=== PATIENT | female | born 1950 | race Caucasian/White ===

== ENCOUNTER → 2017-03-24 | Outpatient (CLI) | payer MEDICARE, BC ==
--- NOTE | 2017-03-24 16:13 | MR ---
EXAMINATION TYPE: MR shoulder LT wo con DATE OF EXAM: 03/24/2017 10:56 AM COMPARISON: Prior left shoulder MRI 07 November 2014, plain film third of February 2017 HISTORY: Left shoulder pain TECHNIQUE: Multiplanar, multisequence imaging of the left shoulder is performed without contrast. FINDINGS: There is some motion on the exam. Rotator Cuff: Similar appearance is noted. Tendinosis present within the subscapularis tendon is some what less pronounced. No through and through or rosa maria rotator cuff tear is evident, there is no retra ction. Some increased signal is noted along the inferior margin of the distal margin of the supraspin atus tendon. Acromioclavicular Joint: Question postop change, distal clavicular resection. Glenohumeral Joint: Similar appearance to prior exam. Labrum: Similar appearance. Biceps Tendon: The long head of biceps is in normal location within bicipital groove. Bone marrow signal: There is been an interval increase in pseudocyst formation, marrow signal change at the level of the undersurface of the rotator cuff tendon. There is a tract in the humeral head lik heaven from prior screw deployment. Other: No additional significant abnormality is appreciated. IMPRESSION: Interval surgery. No rosa maria rotator cuff tear.
== END | disposition home or self-care (01) ==
LOC: RADMRIMAIN 10:11
PROVIDERS: ATTEND Orthopaedic Surgery
DX: M25.512 Pain in left shoulder (principal)

== ENCOUNTER → 2017-04-29 | Outpatient (CLI) | payer MEDICARE, BC ==
--- NOTE | 2017-04-29 16:12 | US ---
EXAMINATION TYPE: US thyroid st tissue head/neck DATE OF EXAM: 04/29/2017 COMPARISON: US thyroid October 28, 2016. CLINICAL HISTORY: E04.1 THYROID NODULE. GLAND SIZE: Right Lobe: 6.4 x 3.3 x 4.4 cm Overall Parenchyma: heterogenous Left Lobe: 4.3 x 1.1 x 1.6 cm Overall Parenchyma: heterogeneous Isthmus Thickness: 0.2 cm NODULES RIGHT: # of nodules measured on right: 2 1. 5.5 X 3.1 x 5.2 cm isoechoic mixed nodule at the mid pole with well-defined margins; . This nod ule is wider than tall and shows intranodular vascularity. Prior size: 5.3 x 3.3 x 2.8 cm 2. 2.4 X 1.1 x 1.7 cm hypoechoic solid nodule at the lower pole with well-defined margins; . This n odule is taller than wide and shows intranodular vascularity. Prior size: 1.5 x 2.5 x 2.0 cm LEFT: # of nodules measured on left: 0 ISTHMUS: # of nodules measured in the isthmus: 0 Bilateral neck scanned, no evidence of lymphadenopathy. nodules as described Heterogeneous enlarged thyroid gland particularly right thyroid lobe with large ill-defined right-geovani ed thyroid nodules redemonstrated. These nodules have been biopsied in the past. No new nodules are e vident. IMPRESSION: Overall stable findings, no new suspicious greater than 1 cm nodule seen.
== END | disposition home or self-care (01) ==
LOC: RADUSWWP 15:29
PROVIDERS: ATTEND Otolaryngology
DX: E04.1 Nontoxic single thyroid nodule (principal)
CPT/HCPCS: 76536

== ENCOUNTER → 2017-04-30 | Outpatient (CLI) | payer MEDICARE, BC ==
--- NOTE | 2017-04-30 12:36 | FL ---
ESOPHOGRAM. HISTORY: Dysphagia Esophagram was performed per the air contrast technique. The patient swallowed barium and effervesce nt crystals without difficulty or delay. Esophageal peristalsis and motility appear to be within normal limits. There is no evidence for filling defect, mass or diverticulum. No hiatal hernia seen. Subsequently single contrast cervical esophagram was performed which fails demonstrate evidence for a spiration penetration or intraluminal mass. Esophageal deviation from right to left compatible with e nlarged right thyroid lobe as seen on recent ultrasound of the thyroid gland and underlying nodule. IMPRESSION: 1. Esophageal deviation from right to left at the level of the thoracic inlet. Otherwise unremarkable study.
== END | disposition home or self-care (01) ==
LOC: RADFLWHC 10:53
PROVIDERS: ATTEND Family Medicine
DX: K22.8 Other specified diseases of esophagus (principal); R07.9 Chest pain, unspecified
CPT/HCPCS: 74220

== ENCOUNTER → 2017-09-08 | Outpatient (CLI) | payer MEDICARE, BC ==
--- NOTE | 2017-09-08 15:46 | MR ---
EXAMINATION TYPE: MR brain wo/w con DATE OF EXAM: 09/08/2017 COMPARISON: NONE HISTORY: Temporal Headache TECHNIQUE: Multiplanar, multisequence images of the brain and brainstem is performed without and with IV contras t, utilizing 7.5 mL intravenous Gadavist . FINDINGS: Diffusion weighted images demonstrate no evidence of a recent infarct or other diffusion ab normality. Wwrk-co-cdmjtyoi generalized degenerative change. Changes of chronic sinusitis noted. Craniocervical junction maintained. There are confluent as well as numerous focal areas of abnormal signal scattered throughout the white matter bilaterally. Findings may be on the basis of remote microvascular ischemia. Other etiologies not entirely excluded. Abnormal signal involving the left thalamus and the basal ganglia bilaterally are nonspecific can be seen with prominent Virchow-Hector spaces or tiny remote lacunar infarcts. Vascular signal voids appear to be patent. Changes of chronic bilateral mastoiditis noted. IMPRESSION: 1. Ufkl-ot-qketetvt degenerative change. 2. Nonspecific white matter changes. Differential diagnosis includes remote microvascular ischemia. C orrelate clinically to exclude other etiologies.
== END ==
LOC: RADMRIMAIN 14:29
PROVIDERS: ATTEND Family Medicine
DX: R90.89 Other abnormal findings on diagnostic imaging of central nervous system (principal)
CPT/HCPCS: 70553; A9581

== ENCOUNTER → 2018-03-31 | Outpatient (CLI) | payer MEDICARE, BC ==
--- NOTE | 2018-03-31 14:44 | US ---
EXAMINATION TYPE: US kidneys/renal and bladder DATE OF EXAM: 03/31/2018 COMPARISON: NONE CLINICAL HISTORY: 67-year-old female R10.9 abdominal pain. TECHNIQUE: Multiple sonographic images of the kidneys and bladder are obtained. FINDINGS: Right Kidney: 11.0 x 3.9 x 4.0 cm Left Kidney: 10.3 x 4.5 x 5.0 cm No hydronephrosis on either side. Bladder appears grossly unremarkable. IMPRESSION: No hydronephrosis.
== END | disposition home or self-care (01) ==
LOC: RADUSWWP 12:18
PROVIDERS: ATTEND Family Medicine
DX: R10.9 Unspecified abdominal pain (principal)
CPT/HCPCS: 76770

== ENCOUNTER → 2018-04-13 | Outpatient (CLI) | payer MEDICARE, BC ==
--- NOTE | 2018-04-13 13:52 | US ---
EXAMINATION TYPE: US thyroid st tissue head/neck DATE OF EXAM: 04/13/2018 COMPARISON: US CLINICAL HISTORY: E04.1 Thyroid Nodule. GLAND SIZE: Right Lobe: 6.8 x 3.3 x 4.4 cm Overall Parenchyma: heterogenous Left Lobe: 3.2 x 1.1 x 1.4 cm Overall Parenchyma: heterogeneous Isthmus Thickness: 0.1 cm NODULES RIGHT: # of nodules measured on right: 2 1. 2.3 X 1.4 x 1.5 cm hypoechoic solid nodule at the lower pole with well-defined margins; . This nodule is taller than wide and shows intranodular vascularity. Prior size: 2.4 x 1.1 x 1.7 cm 2. 5.2 X 2.9 x 4.1 cm isoechoic solid nodule at the mid pole with poorly defined margins; . This no dule is wider than tall and shows intranodular vascularity. Prior size: 5.5 x 3.1 x 5.2 cm LEFT: # of nodules measured on left: 0 ISTHMUS: # of nodules measured in the isthmus: 0 Bilateral neck scanned, no evidence of lymphadenopathy. Nodules as described. IMPRESSION: Findings are similar to prior exam.
== END | disposition home or self-care (01) ==
LOC: RADUSWWP 11:00
PROVIDERS: ATTEND Otolaryngology
DX: E04.1 Nontoxic single thyroid nodule (principal)
CPT/HCPCS: 76536

== ENCOUNTER → 2018-11-25 | Outpatient (CLI) | payer MEDICARE, OTHER ==
--- NOTE | 2018-11-25 11:51 | US ---
EXAMINATION TYPE: US venous doppler duplex LE LT DATE OF EXAM: 11/25/2018 11:07 AM COMPARISON: NONE CLINICAL HISTORY: 68-year-old female with left Leg Pain M79.605. Intermittent left leg pain x 1 to 2 months SIDE PERFORMED: Left TECHNIQUE: The lower extremity deep venous system is examined utilizing real time linear array sonog harry with graded compression, doppler sonography and color-flow sonography. FINDINGS: VESSELS IMAGED: External Iliac Vein (EIV) Common Femoral Vein Deep Femoral Vein Greater Saphenous Vein * Femoral Vein Popliteal Vein Small Saphenous Vein * Proximal Calf Veins (* superficial vessels) Left Leg: Appears negative for DVT IMPRESSION: No evidence for DVT within the left lower extremity imaged from the groin to the upper calf.
== END | disposition home or self-care (01) ==
LOC: RADUSWWP 10:43
PROVIDERS: ATTEND Family Medicine
DX: M79.605 Pain in left leg (principal)

== ENCOUNTER → 2018-12-22 | Outpatient (CLI) | payer MEDICARE, OTHER ==
--- NOTE | 2018-12-22 14:00 | NM ---
EXAMINATION TYPE: NM bone scan whole body DATE OF EXAM: 12/22/2018 COMPARISON: NONE HISTORY: Left leg pain Delayed whole-body scanning was performed following the injection of 24 mCi Tc 99m MDP. Images acqui red 3 hours post injection. FINDINGS: Photopenic defect involving the right knee compatible with previous knee replacement surgery. Abnormal uptake involving the feet bilaterally most typical of post arthritic or degenerative changes . Mild abnormal uptake surrounding the left knee likely post arthritic. Scoliotic curvature the spine with mild intensity uptake throughout the thoracic spine likely degener ative. Faint uptake involving the shoulders likely post arthritic. IMPRESSION: Faint abnormal uptake involving the left knee likely post arthritic. Abnormal uptake involving the fe et likely post arthritic.
== END ==
LOC: RADNMMAIN 09:35
PROVIDERS: ATTEND Family Medicine
DX: M79.605 Pain in left leg (principal)
CPT/HCPCS: 78306; A9503

== ENCOUNTER → 2018-12-30 | Outpatient (CLI) | payer MEDICARE, OTHER ==
--- NOTE | 2018-12-31 00:19 | MR ---
EXAMINATION TYPE: MR knee LT wo con DATE OF EXAM: 12/30/2018 COMPARISON: None HISTORY: Left knee pain TECHNIQUE: Multiplanar, multisequence imaging of the left knee is performed without IV contrast. FINDINGS: There is mild knee joint effusion. There are synovial cysts on the anterior aspect of the anterior ho rn of the lateral meniscus. The anterior and posterior cruciate ligaments are intact. There is horizontal increased signal through the anterior and posterior horns of the medial meniscus. There is extensive increased signal in the anterior horn of the lateral meniscus. Posterior horn lat eral meniscus appears intact. There is no evidence of a fracture. I see no bony destructive process. Collateral ligaments appear intact. The joint spaces are fairly normal. IMPRESSION: Small joint effusion with synovial cysts anterior to the lateral joint space. Complex tear of the anterior horn lateral meniscus. Horizontal tears of the anterior and posterior horns of the medial meniscus.
== END | disposition home or self-care (01) ==
LOC: RADMRIMAIN 21:21
PROVIDERS: ATTEND Orthopaedic Surgery
DX: S83.272A Complex tear of lateral meniscus, current injury, left knee, initial encounter (principal); S83.242A Other tear of medial meniscus, current injury, left knee, initial encounter; M71.38 Other bursal cyst, other site

== ENCOUNTER → 2019-04-12 | Outpatient (CLI) | payer MEDICARE, OTHER ==
--- NOTE | 2019-04-13 07:22 | US ---
EXAMINATION TYPE: US thyroid st tissue head/neck DATE OF EXAM: 04/12/2019 COMPARISON: US 2018 CLINICAL HISTORY: E04.1 Thyroid nodule. Follow up thyroid nodules, history of FNA GLAND SIZE: Right Lobe: 6.9 x 3.8 x 5.9 cm Overall Parenchyma: heterogenous Left Lobe: 4.2 x 1.1 x 1.3 cm Overall Parenchyma: heterogeneous Isthmus Thickness: 0.2 cm NODULES RIGHT: # of nodules measured on right: 1. 6.6 X 3.5 x 5.3 cm isoechoic mixed nodule at the mid pole with poorly defined margins. This nodu le is wider than tall and shows intranodular vascularity. Prior size: 5.2 x 2.9 x 4.1 cm LEFT: # of nodules measured on left: 0 ISTHMUS: # of nodules measured in the isthmus: 0 Bilateral neck scanned, no evidence of lymphadenopathy. IMPRESSION: Continued enlargement of the heterogenous right thyroid nodule measuring up to 6.6 cm it appears that a previously seen hypoechoic adjacent nodule had undergone fine-needle aspiration in 2017. Nuclear m edicine thyroid scan could assess for cold nodule to determine the need for additional biopsy.
== END | disposition home or self-care (01) ==
LOC: RADUSWWP 16:11
PROVIDERS: ATTEND Otolaryngology
DX: E04.1 Nontoxic single thyroid nodule (principal)
CPT/HCPCS: 76536

== ENCOUNTER 2019-05-21 09:09 | Day surgery (SDC) | payer MEDICARE, OTHER ==
[2019-05-21 09:26] VITALS: BP 122/67; PULSE 72; RESP 20; TEMP 97.6
--- NOTE | 2019-05-21 16:22 | US ---
EXAMINATION TYPE: US FNA thyroid first lesion DATE OF EXAM: 05/21/2019 COMPARISON: NONE HISTORY: Thyroid nodule. Maximal barrier technique was utilized. After informed consent, skin overlying the lesion was locali zed with ultrasound and the overlying skin prepped and draped. Ultrasound was utilized using sterile technique. Lidocaine was used for local anesthesia. Five passes with a 25-gauge needle were made int o the right lobe thyroid nodule and aspirated specimen was submitted to cytology. Following the proc edure hemostasis achieved. No immediate complication. The patient discharged in stable condition. IMPRESSION: STATUS POST ULTRASOUND GUIDED FINE NEEDLE ASPIRATION OF THYROID NODULE, PATHOLOGY IS PEND ING. THIS PROCEDURE WAS PERFORMED BY THE UNDERSIGNED.
== END 2019-05-21 11:05 | disposition home or self-care (01) ==
LOC: RADPROMAIN 09:09
PROVIDERS: ATTEND Otolaryngology
DX: E04.1 Nontoxic single thyroid nodule (principal)
CPT/HCPCS: 10005; 88173; 88305

== ENCOUNTER 2019-06-10 10:10 | Day surgery (SDC) | payer MEDICARE, OTHER ==
[2019-06-08 14:18] VITALS: BMI 30.7
--- NOTE | 2019-06-09 14:01 | HP ---
HISTORY AND PHYSICAL Surgery is 06/10/2019. Annelise Tai is a 68-year-old patient seen with progressive left knee pain. Treatment options were discussed with her. She elected to proceed with left knee arthroscopy. Consent was obtained. Her medical clearance was provided by . PAST MEDICAL HISTORY: Cardiovascular disease, hypertension, hyperlipidemia. PAST SURGICAL HISTORY: Noncontributory. DAILY MEDICATIONS: 1. Aspirin. 2. Crestor. 3. Naprosyn. ALLERGIES: None. SOCIAL HISTORY: She denies current tobacco use. PHYSICAL EXAMINATION: Physical evaluation of the left knee: Range of motion 0 to 130 degrees. There is a mild effusion present. Tenderness along the lateral joint line. Positive lateral Lam's. Ligaments stable. Hip rotation without pain. Distal neurovascular exam is intact. Left knee radiographs revealed mild to moderate osteoarthritic changes. A left knee MRI revealed medial and lateral meniscal tears. IMPRESSION: Internal derangement, left knee with medial and lateral meniscal tears. PLAN: Left knee arthroscopy with partial meniscectomy and debridement. MMODL / IJN: [id number] /
[~2019-06-10 10:10] MED LIST: DEXAMETHASONE SOD PHOSPHATE 10 MG/ML 1 ML VIAL IV ONE; LACTATED RINGERS 1,000 ML IV SCH; LIDOCAINE 1% 20 ML VIAL (10MG/ML) FOR IV START INTRADERMA PRN; ONDANSETRON 4 MG/2 ML VIAL IVP ONE
[2019-06-10] MEDS ORDERED: PROPOFOL 10 MG/ML 20 ML VIAL IV ONE (11:45)
[2019-06-10] MEDS ORDERED: fentaNYL (PF) 50 MCG/ML 2 ML AMP ONE (11:45)
[2019-06-10] MEDS ORDERED: LIDOCAINE 1% INJ 10MG/ML (20 ML MDV) ONE (11:45)
[2019-06-10] MEDS ORDERED: BUPIVACAINE (PF) 0.25% 30 ML VIAL SQ ONE (12:05)
--- NOTE | 2019-06-10 12:34 | P.OP ---
Date of Procedure: 06/10/19 Preoperative Diagnosis: Internal derangement left knee Postoperative Diagnosis: 1. Tear medial meniscus left knee 2. Grade 2 chondromalacia medial femoral condyle left knee 3. Grade 2 chondromalacia patella left knee 4. Reactive synovitis medial, lateral and suprapatellar compartments left knee Procedure(s) Performed: 1. Arthroscopic partial medial meniscectomy left knee 2. Arthroscopic chondroplasty medial femoral condyle left knee 3. Arthroscopic chondroplasty patella left knee 4. Arthroscopic partial synovectomy medial, lateral and suprapatellar compartments left knee Anesthesia: SABRINAA, local Surgeon: Bakari Escamilla Estimated Blood Loss (ml): 7 Pathology: none sent Condition: stable Disposition: PACU Indications for Procedure: 68-year-old patient seen with progressive left knee pain. After having treatment options discussed, she elected to proceed with arthroscopy. Operative Findings: See description of procedure Description of Procedure: Patient was taken to the operative suite. Patient underwent a general anesthetic by the department of anesthesia. Patient was given preoperative antibiotics. The left lower extremity was placed in a well-padded arthroscopic leg carballo. The left leg was prepped and draped in the normal sterile orthopedic fashion. A lateral parapatellar and suprapatellar incision was made. Trochars were inserted. Arthroscopy was initiated. Suprapatellar pouch reveal ed diffuse thick reactive synovitis. The patellofemoral joint appeared to articulate congruently. There was grade 2 chondromalacia with diffuse osteochondral tears present. The scope was guided into the medial gutter. No loose bodies or plica were identified. The scope was then guided into the medial compartment. A medial parapatellar incision was made. Trocar inserted followed by probe. There was a radial tear involving the posterior horn medial meniscus. There were grade 2 chondromalacia changes of the medial femoral condyle with some osteochondral flap tears present. There was thick reactive synovitis anteriorly. I performed a partial medial meniscectomy down to stable tissue. I performed a chondroplasty of the medial femoral condyle down to stable tissue. I performed a partial synovectomy decompressing reactive synovitis. The residual meniscus was stable. The residual osteochondral surface was stable. There was good decompression of the synovitis. Scope and probe were then guided into the intercondylar notch. Cruciates were identified, probed and found to be stable. The scope and probe were then guided into lateral compartment. Lateral meniscus was probed and found to be stable. There was no significant chondromalacia present into lateral compartment. There was some reactive synovitis anteriorly. I performed a partial synovectomy decompressing the reactive synovitis. The scope was in guided back into the suprapatellar compartment. I introduced a motorized shaver into the suprapatellar compartment. I debrided some piecemeal fragments of meniscus I encountered. I performed a chondroplasty of the patella down to stable tissue. I performed a partial synovectomy decompressing reactive synovitis. The shaver was removed. I took one more look around the entire knee, no residual debris. Instruments were now removed from the joint. The joint was infiltrated with .25% Marcaine. Steri-Strips were applied to the portal sites. Sterile dressin gs were applied. The patient was placed into a TITO hose. No tourniquet was utilized. The patient was awakened, transferred to a bed and taken to recovery stable satisfactory condition.
[2019-06-10 12:38] VITALS: RESP 16; TEMP 97.6
[2019-06-10] MEDS: HYDROmorphone 0.5 MG/0.5 ML SYRINGE IVP PRN ×2 (12:45→12:59)
[2019-06-10 13:39] VITALS: BP 117/69
[2019-06-10 13:56] VITALS: PULSE 57
== END 2019-06-10 14:16 | disposition home or self-care (01) ==
LOC: OR 10:10
PROVIDERS: ATTEND Orthopaedic Surgery
DX: M23.322 Other meniscus derangements, posterior horn of medial meniscus, left knee (principal); M22.42 Chondromalacia patellae, left knee; M65.862 Other synovitis and tenosynovitis, left lower leg; M19.90 Unspecified osteoarthritis, unspecified site; I10 Essential (primary) hypertension; E78.5 Hyperlipidemia, unspecified; Z79.82 Long term (current) use of aspirin; Z79.899 Other long term (current) drug therapy; Z79.1 Long term (current) use of non-steroidal anti-inflammatories (NSAID)
CPT/HCPCS: 29881; J1100; J0690; J2405; J2001; J3010; J2704; J1170

== ENCOUNTER → 2019-06-30 | Outpatient (CLI) | payer MEDICARE, OTHER ==
--- NOTE | 2019-06-30 13:58 | XR ---
Right hip HISTORY: Right hip pain 2 views of the right hip Bone mineralization, joint spaces and alignment are maintained, possible bone island in the acetabula r roof. IMPRESSION: Normal right hip, hip MRI may be of benefit.
== END | disposition home or self-care (01) ==
LOC: RADXRMAIN 13:43
PROVIDERS: ATTEND Orthopaedic Surgery
DX: M25.551 Pain in right hip (principal)
CPT/HCPCS: 73502

== ENCOUNTER → 2020-04-19 | Outpatient (CLI) | payer MEDICARE ==
[2020-04-19 15:48] LABS: % Iron Saturation 23.97 (12.00-45.00)
[2020-04-19 15:49] LABS: Protein, Total 6.4 g/dL (6.2-8.2)
[2020-04-19 15:57] LABS: Ferritin 95.7 ng/mL (10.0-291.0)
[2020-04-19 18:16] LABS: Hepatitis B Surface Antigen Non-Reactive (Non-Reactive); Hepatitis C IgG Antibody Non-Reactive (Non-Reactive)
[2020-04-20 13:15] LABS: Ceruloplasmin 24.2 mg/dL (20.0-60.0)
== END | disposition home or self-care (01) ==
LOC: LABWHC1 10:27
PROVIDERS: ATTEND Internal Medicine Gastroenterology
DX: R94.5 Abnormal results of liver function studies (principal)
CPT/HCPCS: 36415; 82103; 82390; 82728; 83516; 83540; 83550; 84165; 86038; 86803; 87340

== ENCOUNTER → 2020-04-28 | Outpatient (CLI) | payer MEDICARE, OTHER ==
--- NOTE | 2020-04-28 07:49 | US ---
EXAMINATION TYPE: US thyroid st tissue head/neck DATE OF EXAM: 04/28/2020 COMPARISON: US 2019 CLINICAL HISTORY: E04.1 thyroid nodule. Enlarged right thyroid lobe, history of FNA. GLAND SIZE: Right Lobe: 7.1 x 3.5 x 6.0 cm Overall Parenchyma: heterogenous Left Lobe: 3.7 x 1.3 x 1.2 cm Overall Parenchyma: heterogeneous Isthmus Thickness: 0.2 cm NODULES RIGHT: # of nodules measured on right: 1 1. 6.0 X 3.2 x 5.0 cm isoechoic mixed nodule at the mid pole with poorly defined margins. This nodu le is wider than tall and shows intranodular vascularity. Prior size: 6.6 x 3.5 x 5.3 cm LEFT: # of nodules measured on left: 0 ISTHMUS: # of nodules measured in the isthmus: 0 Bilateral neck scanned, no evidence of lymphadenopathy. Persistent heterogeneous markedly enlarged thyroid with dominant nodule that has been sampled April. Correlate clinically with pathology results. IMPRESSION: As above. No new nodules are evident.
== END | disposition home or self-care (01) ==
LOC: RADUSWWP 07:12
PROVIDERS: ATTEND Otolaryngology
DX: E04.1 Nontoxic single thyroid nodule (principal)
CPT/HCPCS: 76536

== ENCOUNTER → 2020-05-19 | Outpatient (CLI) | payer MEDICARE ==
--- NOTE | 2020-05-19 10:37 | US ---
EXAMINATION TYPE: US liver DATE OF EXAM: 05/19/2020 COMPARISON: US 2016 CLINICAL HISTORY: R94.5 Abnormal liver functions. Elevated liver enzymes EXAM MEASUREMENTS: Liver Length: 15.4 cm Gallbladder Wall: 0.2 cm CBD: 0.4 cm Right Kidney: 10.2 x 4.5 x 4.5 cm Pancreas: visualized portions wnl, limited by overlying midline bowel gas Liver: wnl Gallbladder: wnl Evidence for sonographic Ortega's sign: no CBD: visualized portions wnl, limited by overlying bowel gas Right Kidney: wnl IMPRESSION: 1. No suspicious acute ultrasound abnormality within the visualized right upper quadrant.
== END | disposition home or self-care (01) ==
LOC: RADUSWWP 09:33
PROVIDERS: ATTEND Internal Medicine Gastroenterology
DX: R94.5 Abnormal results of liver function studies (principal)
CPT/HCPCS: 76705

== ENCOUNTER 2020-05-24 09:10 | Day surgery (SDC) | payer MEDICARE, OTHER ==
[2020-05-22 16:06] VITALS: BMI 30.9
[~2020-05-24 09:10] MED LIST changes: -DEXAMETHASONE SOD PHOSPHATE 10 MG/ML 1 ML VIAL IV ONE; -LIDOCAINE 1% 20 ML VIAL (10MG/ML) FOR IV START INTRADERMA PRN; -ONDANSETRON 4 MG/2 ML VIAL IVP ONE
[2020-05-24 09:37] VITALS: TEMP 97.8
[2020-05-24] MEDS ORDERED: LACTATED RINGERS 1,000 ML IV ONE (09:37)
[2020-05-24] MEDS ORDERED: LIDOCAINE 1% (10MG/ML) FOR IV START INTRADERMA ONE (09:37)
[2020-05-24] MEDS ORDERED: PROPOFOL 10 MG/ML 20 ML VIAL IV ONE (10:58)
[2020-05-24] MEDS ORDERED: LIDOCAINE 1% INJ 10MG/ML (20 ML MDV) ONE (10:58)
--- NOTE | 2020-05-24 11:18 | P.PCN ---
Date of Procedure: 05/24/20 Procedure(s) Performed: Brief history: Patient is a pleasant 69-year-old white female scheduled for an elective upper endoscopy as well as colonoscopy as a part of evaluation of GERD/positive bowel movements with lower abdominal pain for the last few months duration. Procedure performed: Esophagogastroduodenoscopy with biopsy Colonoscopy Preoperative diagnosis: GERD Lower abdominal pain and altered bowel movements Anesthesia: MAC Procedure: After informed consent was obtained from the patient was brought into the endoscopy unit and IV sedation was administered by anesthesia under continuous monitoring. Initially upper endoscopy was done. The Olympus GF 160 video endoscope was inserted inserted into the mouth and esophagus intubated without any difficulty and was gradually advanced into the stomach and duodenum and carefully examined. The bulb and second part of the duodenum appeared normal. Biopsies were done from the duodenum to rule out celiac disease. The scope was then withdrawn into the stomach adequately insufflated with air and upon careful examination the antrum and body, cardia and fundus appeared normal. The scope was then withdrawn into the esophagus. The GE junction was located at 40 cm to the incisors. It appeared regular with no erythema erosions or ulcerations. Rest of the esophagus appeared normal. Biopsies were done from the esophagus. Patient tolerated the procedure well. At this time the patient continued to remain sedation. Initial digital rectal examination was normal. Olympus CF 160 video colonoscope was then inserted into the rectum and gradually advanced to the cecum without any difficulty. Careful examination was performed as the scope was gradually being withdrawn. The prep was good.. The cecum, ascending colon, transverse colon, descending colon, sigmoid colon and rectum appeared normal. Retroflexion was performed in the rectum and no lesions were noted. Patient tolerated the procedure well. Impression: 1. Upper endoscopy was essentially within normal limits with no lesions of esophagitis or peptic ulcer 2. Colonoscopy was normal with no evidence of colitis or colorectal neoplasia Recommendations: Findings of this examination were discussed with the patient as well as[ a family. She was advised to follow with the biopsy results she'll continue with her current medications. She can have a repeat colonoscopy in 10 years.
[2020-05-24 11:21] VITALS: RESP 16
[2020-05-24 11:38] VITALS: BP 132/78; PULSE 67
== END 2020-05-24 11:52 | disposition home or self-care (01) ==
LOC: ORWHC2ENDO 09:10
PROVIDERS: ATTEND Internal Medicine Gastroenterology
DX: K21.0 Gastro-esophageal reflux disease with esophagitis (principal); R10.30 Lower abdominal pain, unspecified; R19.4 Change in bowel habit; E78.5 Hyperlipidemia, unspecified; Z79.899 Other long term (current) drug therapy; Z79.82 Long term (current) use of aspirin; Z87.39 Personal history of other diseases of the musculoskeletal system and connective tissue; Z98.890 Other specified postprocedural states; Z90.89 Acquired absence of other organs
CPT/HCPCS: 45378; 43239; J2001; J2704; 88305

== ENCOUNTER → 2020-06-14 | Outpatient (CLI) | payer MEDICARE ==
--- NOTE | 2020-06-14 22:30 | MR ---
EXAMINATION TYPE: MR shoulder RT wo con DATE OF EXAM: 06/14/2020 COMPARISON: MRI right shoulder April 06, 2016. Right shoulder x-ray May 23, 2020 HISTORY: Right shoulder pain with difficulty raising overhead for 5 to 6 months per patient. TECHNIQUE: Multiplanar, multisequence imaging of the right shoulder is performed without contrast. FINDINGS: Rotator Cuff: Persistent increased signal distal supraspinatus and infraspinatus tendons with worseni ng tearing articular surface involving supraspinatus tendon measuring 7 mm transversely coronal image 14 and 11 mm AP diameter sagittal image 21. Subscapularis tendon intact. Rotator cuff muscle bulk pr eserved. Acromioclavicular Joint: Mild to moderate narrowing and capsular hypertrophy. Mild spurring. Distal a cromion morphology unremarkable. Glenohumeral Joint: Moderate glenohumeral joint effusion larger from prior. No significant spurring. Labrum: Degenerative irregularities involving superior labrum coronal image 15. Biceps Tendon: Some increased signal intracapsular portion near biceps anchor are present sagittal im age 13 for reference. Bone marrow signal: Subchondral cystic changes superolateral humeral head. Other: No additional significant abnormality is appreciated. IMPRESSION: 1. Progression of tendinosis and partial tearing of the distal supraspinatus tendon. 2. Gccv-gu-lrhlyhgj degenerative changes in shoulder with some interval progression noted as detailed above. 3. Progression of tendinosis/partial tearing of the intracapsular portion long head of biceps tendon.
== END | disposition home or self-care (01) ==
LOC: RADMRIMAIN 19:06
PROVIDERS: ATTEND Orthopaedic Surgery
DX: S46.011A Strain of muscle(s) and tendon(s) of the rotator cuff of right shoulder, initial encounter (principal); M19.011 Primary osteoarthritis, right shoulder

== ENCOUNTER → 2020-07-05 | Outpatient (CLI) | payer MEDICARE ==
[2020-07-05 12:40] LABS: Basophils % (A) 1 %; Eosinophils # (A) 0.1 k/uL (0-0.7); Eosinophils % (A) 2 %; HCT 45.2 % (34.0-46.0); HGB 14.8 gm/dL (11.4-16.0); Lymphocytes # (A) 1.4 k/uL (1.0-4.8); Lymphocytes % (A) 28 %; MCH 29.8 pg (25.0-35.0); MCHC 32.7 g/dL (31.0-37.0); MCV 91.1 fL (80.0-100.0); Mean Platelet Volume 7.7; Monocytes # (A) 0.3 k/uL (0-1.0); Monocytes % (A) 6 %; Neutrophils % (A) 62 %; Platelet Count 197 k/uL (150-450); RBC 4.96 m/uL (3.80-5.40); RDW 11.9 % (11.5-15.5); WBC 4.8 k/uL (3.8-10.6)
[2020-07-05 12:44] LABS: Potassium 4.5 mmol/L (3.5-5.1)
== END | disposition home or self-care (01) ==
LOC: LABPAT 11:16
PROVIDERS: ATTEND Orthopaedic Surgery
DX: Z01.818 Encounter for other preprocedural examination (principal); M75.41 Impingement syndrome of right shoulder
CPT/HCPCS: 36415; 80051; 85025

== ENCOUNTER 2020-07-19 05:51 | Day surgery (SDC) | payer MEDICARE ==
[2020-07-13 10:21] VITALS: BMI 30.9
--- NOTE | 2020-07-18 20:03 | HP ---
HISTORY AND PHYSICAL DATE OF SURGERY: 07/19/2020 Annelise Tai is a 69-year-old patient seen with progressive right shoulder pain. We discussed options for treatment. She elected to proceed with arthroscopy. Consent was obtained. Cardiac clearance was provided by Dr. Wayne. PAST MEDICAL HISTORY: Hyperlipidemia, gastroesophageal reflux disease. PAST SURGICAL HISTORY: Total knee arthroplasty, left shoulder arthroscopy. DAILY MEDICATIONS: Aspirin, Crestor, omeprazole, tramadol. ALLERGIES: NONE. SOCIAL HISTORY: She denies current tobacco use. PHYSICAL EVALUATION OF THE RIGHT SHOULDER: Flexion 100 degrees, abduction 70 degrees. External rotation is 30 degrees with pain and weakness. Tenderness along the anterolateral acromion and rotator cuff insertion site. Impingement is positive at 70 degrees. Drop-arm sign positive. Distal neurovascular exam intact. RIGHT SHOULDER RADIOGRAPHS: Right shoulder radiographs revealed a type 2 anterior acromion and cystic changes of the greater tuberosity. Right shoulder MRI revealed partial rotator cuff tear, biceps tendinitis, osteoarthritis. IMPRESSION: 1. Right shoulder impingement with rotator cuff tear. 2. Right shoulder osteoarthritis. 3. Hyperlipidemia. 4. Gastroesophageal reflux disease. PLAN: Right shoulder arthroscopy with subacromial decompression, arthroscopic rotator cuff repair, Annia procedure and debridement. MMODL / IJN: [id number] /
[~2020-07-19 05:51] MED LIST changes: +DEXAMETHASONE SOD PHOSPHATE 10 MG/ML 1 ML VIAL IV ONE; +LIDOCAINE 1% (10MG/ML) FOR IV START INTRADERMA PRN; +MIDAZOLAM 2 MG/2 ML VIAL IV PRN
[2020-07-19] MEDS ORDERED: ONDANSETRON 4 MG/2 ML VIAL ONE (06:33)
[2020-07-19] MEDS: ONDANSETRON 4 MG/2 ML VIAL IVP ONE ×2 (06:45→09:35)
[2020-07-19] MEDS ORDERED: fentaNYL (PF) 50 MCG/ML 2 ML AMP IV ONE (06:50)
[2020-07-19] MEDS ORDERED: ROPIVACAINE 5 MG/ML 30 ML VIAL ONE (07:28)
[2020-07-19] MEDS ORDERED: NEOSTIGMINE 1 MG/ML 10 ML VIAL ONE (07:28)
[2020-07-19] MEDS ORDERED: fentaNYL (PF) 50 MCG/ML 2 ML AMP ONE (07:28)
[2020-07-19] MEDS ORDERED: DEXAMETHASONE SOD PHOSPHATE 4 MG/ML 1 ML VIAL ONE (07:28)
[2020-07-19] MEDS ORDERED: MIDAZOLAM 2 MG/2 ML VIAL ONE (07:28)
[2020-07-19] MEDS ORDERED: LIDOCAINE 1% INJ 10MG/ML (20 ML MDV) ONE (07:28)
[2020-07-19] MEDS ORDERED: GLYCOPYRROLATE 0.2 MG/ML 2 ML VIAL ONE (07:28)
[2020-07-19] MEDS ORDERED: PROPOFOL 10 MG/ML 20 ML VIAL IV ONE (07:28)
[2020-07-19] MEDS ORDERED: ROCURONIUM BROMIDE 10 MG/ML 5 ML VIAL IV ONE (07:28)
--- NOTE | 2020-07-19 09:07 | P.OP ---
Date of Procedure: 07/19/20 Preoperative Diagnosis: Right shoulder impingement Postoperative Diagnosis: 1. Right shoulder rotator cuff tear 2. Right shoulder impingement 3. Right shoulder acromioclavicular joint osteoarthritis 4. Right shoulder partial long head biceps tendon tear Procedure(s) Performed: 1. Right shoulder arthroscopic rotator cuff repair 2. Right shoulder arthroscopic subacromial decompression 3. Right shoulder arthroscopic Annia procedure 4. Right shoulder arthroscopic biceps tenotomy Implants: 15.5 Arthrex swivel lock anchor Anesthesia: GETA, regional (Interscalene block) Surgeon: Bakari Escamilla Estimated Blood Loss (ml): 7 Pathology: none sent Condition: stable Disposition: PACU Indications for Procedure: 69-year-old patient seen with progressive right shoulder pain. After having treatment options discussed, she elected to proceed with arthroscopy. Operative Findings: See description of procedure Description of Procedure: Patient underwent an interscalene block by department of anesthesia. The patient was then taken to the operative suite. The patient underwent a general anesthetic by the department of anesthesia. The patient was placed into a lateral position and secured. There was appropriate padding of the bony prominence. Right shoulder was then prepped and draped in normal sterile orthopedic fashion. We placed the extremity in 10 pounds of longitudinal tract ion. A posterior incision was now made for a posterior working portal site. The trocar and cannula were inserted into the glenohumeral joint. Arthroscopy was initiated. Spinal needle was now inserted anteriorly, to ascertain the anterior working portal site. An incision was now made in that area, a trocar was inserted followed by a probe. There was some hyperemia and partial tearing long head biceps tendon. There were grade 1 chondromalacia changes of the humeral head. There was some mild superficial fraying of the superior labrum. I performed an arthroscopic biceps tenotomy. I debrided the superficial labral fraying with a motorized shaver. The residual labrum was stable. Instruments now removed from glenohumeral joint. Utilizing the posterior working portal site, the trocar and cannula were inserted into the subacromial space. Arthroscopy initiated. I made an incision 2 fingerbreadths lateral to the acromion. I introduced my trocar followed by my ArthroCare ablator. I now began ablating thick subacromial bursal tissue, which exposed the undersurface of the anterior acromion. There was diminished subacromial space. There was a very prominent anterior acromion. A motorized bur was introduced and a subacromial decompression was performed. I also excised some osteophytes off the inferior aspect of the distal clavicle. The AC joint was visualized and noted to be fairly arthritic. The motorized bur was introduced in the anterior portal site and a Annia procedure was performed without difficulty, decompressing the AC joint nicely. I turned my attention to the rotator cuff. There was some superficial tearing along the midportion distal supraspinatus. Upon probing the area there was a full-thickness perforation noted. I debrided the margins getting down to stable tendon tissue. The defect measured 1.5 cm but it was freely mobile over the footprint. I abraded the footprint with a motorized bur. I passed 2 everted mattress sutures through good bites of rotator cuff tendon. I now repaired the tendon utilizing a 5.5 Arthrex swivel lock anchor. All residual suture limbs were now clipped. We had good compression of the tendon along the entire footprint. I injected 1 mL Renyte intra-articular. Instruments now removed from the portal sites. All portal sites were approximated with nylon suture. Sterile dressings were applied followed by a shoulder sling. The patient was awakened, transferred to a bed, and taken to recovery in stable condition.
[2020-07-19 09:09] VITALS: TEMP 97.1
[2020-07-19] MEDS: HYDROmorphone 0.5 MG/0.5 ML SYRINGE IVP PRN ×2 (09:34→09:54)
[2020-07-19] MEDS ORDERED: HYDROcodone/APAP 7.5-325MG 1 EACH TAB ONE (10:13)
[2020-07-19] MEDS ORDERED: HYDROcodone/APAP 7.5-325MG 1 EACH TAB PO ONE (10:15)
--- NOTE | 2020-07-19 10:33 | P.ANPRN ---
Procedure Note - Anesthesia - Nerve Block Performed Right Interscalene Time Out Performed: Yes (06:50) Date of Procedure: 07/19/20 Procedure Start Time: Procedure Stop Time: :06 Location of Patient: PreOp Indication: Acute Post-Operative Pain, Requested by Surgeon (Dr Escamilla) Sedation Type: Sedate with meaningful contact maintained Preparation: Sterile Prep Position: Supine Catheter: None Needle Types: Pajunk (22g) Ultrasound used to visualize needle placement: Yes Ultrasound used to observe medication spread: Yes Injectate: 0.5% Ropivacaine (see comment for volume) (20cc + Decadron 4mg) Blood Aspirated: No Pain Paresthesia on Injection Noted: No Resistance on Injection: Normal Image Stored and Saved: Yes Events: Uneventful and Well Tolerated
[2020-07-19 11:31] VITALS: BP 142/84; PULSE 62; RESP 16
== END 2020-07-19 11:55 | disposition home or self-care (01) ==
LOC: OR 05:51
PROVIDERS: ATTEND Orthopaedic Surgery
DX: M75.101 Unspecified rotator cuff tear or rupture of right shoulder, not specified as traumatic (principal); M19.011 Primary osteoarthritis, right shoulder; S46.111A Strain of muscle, fascia and tendon of long head of biceps, right arm, initial encounter; M94.211 Chondromalacia, right shoulder; M25.811 Other specified joint disorders, right shoulder; M75.41 Impingement syndrome of right shoulder; E78.5 Hyperlipidemia, unspecified; K21.9 Gastro-esophageal reflux disease without esophagitis; Z88.2 Allergy status to sulfonamides; Z88.5 Allergy status to narcotic agent; Z91.011 Allergy to milk products; Z79.82 Long term (current) use of aspirin; Z79.899 Other long term (current) drug therapy; Z96.659 Presence of unspecified artificial knee joint; Z98.890 Other specified postprocedural states
CPT/HCPCS: 64415; 76942; 29824; 29826; 29827; C1713; Q4212; J2250; J1100 ×2; J2710; J0690; J2405; J2001; J3010; J2795; J2704; J1170

== ENCOUNTER → 2020-11-13 | Outpatient (CLI) | payer MEDICARE ==
--- NOTE | 2020-11-14 00:01 | MR ---
EXAMINATION TYPE: MR shoulder RT wo con DATE OF EXAM: 11/13/2020 COMPARISON: 06/14/2020 HISTORY: Right shoulder pain, fall S/P surgery Multiplanar multiecho imaging of the right shoulder is performed with no contrast. FINDINGS: There is a screw in the greater tuberosity of the humerus. There is extensive edema at the AC joint i nvolving the acromion and the ligament. There is minimal subacromial impingement. The biceps tendon i s intact. Subscapularis tendon is intact. The glenoid casper appear intact. There is mild thickening and increased signal in the supraspinatus tendon over the greater tuberosity of the humerus. There is no retraction. IMPRESSION: Previous surgery. There is some thickening and edema in the supraspinatus tendon consistent with tend initis. I do not see a definite full-thickness tear. No retraction. There is significant edema in the acromion which is a change compared to old exam. This is consistent with a bone bruise. Acromion fra cture not excluded.
== END | disposition home or self-care (01) ==
LOC: RADMRIMAIN 20:22
PROVIDERS: ATTEND Orthopaedic Surgery
DX: R60.0 Localized edema (principal); R93.7 Abnormal findings on diagnostic imaging of other parts of musculoskeletal system; M25.511 Pain in right shoulder; Z98.890 Other specified postprocedural states

== ENCOUNTER 2020-12-11 08:39 | Day surgery (SDC) | payer MEDICARE ==
[2020-12-05 15:10] VITALS: BMI 30.9
--- NOTE | 2020-12-10 12:24 | HP ---
HISTORY AND PHYSICAL REASON FOR ADMISSION: Surgery 12/11/2020 HISTORY OF PRESENT ILLNESS: Annelise Tai is a 70-year-old patient seen with right shoulder adhesive capsulitis with history of previous arthroscopy. We discussed manipulation under anesthesia, right shoulder steroid injection. She was agreeable. Consent was obtained. PAST MEDICAL HISTORY: Hyperlipidemia. PAST SURGICAL HISTORY: Right shoulder arthroscopic rotator cuff repair. MEDICATIONS: Crestor, aspirin. ALLERGIES: None. SOCIAL HISTORY: She denies current tobacco use. PHYSICAL EXAMINATION: Evaluation of the right shoulder: Previous arthroscopic portal sites appear well healed. Flexion 100, abduction 90, external rotation is 10. Distal neurovascular exam is intact. RADIOGRAPHS: Radiographs of the right shoulder revealed a conversion to a flat anterior acromion. Recent MRI revealed a bone bruise. IMPRESSION: 1. Right shoulder adhesive capsulitis. 2. History of recent right shoulder contusion. 3. History of right shoulder arthroscopic rotator cuff repair. 4. Hyperlipidemia. PLAN: Manipulation under anesthesia right shoulder with steroid injection. Surgery 12/11/2020. MMODL / IJN: [id number] /
[~2020-12-11 08:39] MED LIST changes: -DEXAMETHASONE SOD PHOSPHATE 10 MG/ML 1 ML VIAL IV ONE; +HYDROmorphone 0.5 MG/0.5 ML SYRINGE IVP PRN; -MIDAZOLAM 2 MG/2 ML VIAL IV PRN; +ONDANSETRON 4 MG/2 ML VIAL IVP ONE
[2020-12-11] MEDS ORDERED: LACTATED RINGERS 1,000 ML IV ONE (09:01)
[2020-12-11] MEDS ORDERED: PROPOFOL 10 MG/ML 20 ML VIAL IV ONE (10:03)
[2020-12-11] MEDS ORDERED: KETOROLAC 15 MG/ML 1 ML VIAL ONE (10:03)
[2020-12-11] MEDS ORDERED: MIDAZOLAM 2 MG/2 ML VIAL ONE (10:03)
[2020-12-11] MEDS ORDERED: fentaNYL (PF) 50 MCG/ML 2 ML AMP ONE (10:03)
[2020-12-11] MEDS ORDERED: LIDOCAINE 1% INJ 10MG/ML (20 ML MDV) ONE (10:03)
--- NOTE | 2020-12-11 10:13 | P.OP ---
Date of Procedure: 12/11/20 Preoperative Diagnosis: Right shoulder adhesive capsulitis Postoperative Diagnosis: Right shoulder adhesive capsulitis Procedure(s) Performed: Manipulation under anesthesia right shoulder with steroid injection Anesthesia: MAC, local Surgeon: Bakari Escamilla Estimated Blood Loss (ml): 0 Pathology: none sent Condition: stable Disposition: PACU Indications for Procedure: 70-year-old patient seen with right shoulder adhesive capsulitis. After having treatment options discussed, she elected to proceed with manipulation under anesthesia with steroid injection. Consent was obtained. Operative Findings: See description of procedure Description of Procedure: The patient was taken to monitored anesthesia care. The patient underwent IV sedation by the department of anesthesia. Once sufficient anesthesia was noted I performed a manipulation of the right shoulder achieving near full range of motion with audible tearing of the adhesions. The anterior aspect of the shoulder was prepped and draped in the normal sterile orthopedic fashion. I now injected 1 mL Depo-Medrol and 3 mL quarter percent plain Marcaine into the glenohumeral joint via an anterior approach under sterile technique. A sterile Band-Aid was applied. I again took the shoulder through full range of motion. The patient was then awakened having tolerated procedure well.
[2020-12-11 10:28] VITALS: RESP 16; TEMP 96.8
[2020-12-11 11:14] VITALS: BP 133/71; PULSE 65
== END 2020-12-11 11:38 | disposition home or self-care (01) ==
LOC: OR 08:39
PROVIDERS: ATTEND Orthopaedic Surgery
DX: M75.01 Adhesive capsulitis of right shoulder (principal); E78.5 Hyperlipidemia, unspecified; K58.9 Irritable bowel syndrome, unspecified; K21.9 Gastro-esophageal reflux disease without esophagitis; Z79.82 Long term (current) use of aspirin; Z79.899 Other long term (current) drug therapy; Z88.2 Allergy status to sulfonamides; Z88.5 Allergy status to narcotic agent; Z91.011 Allergy to milk products; Z91.018 Allergy to other foods; Z98.890 Other specified postprocedural states
CPT/HCPCS: 23700; J2250; J2405; J2001; J3010; J1885; J2704

== ENCOUNTER → 2021-04-09 | Outpatient (CLI) | payer MEDICARE ==
--- NOTE | 2021-04-09 23:02 | CT ---
EXAMINATION TYPE: CT cervical spine wo con, CT soft tissue neck wo con DATE OF EXAM: 04/09/2021 COMPARISON: CT neck June 13, 2014. Same day thyroid ultrasound and older ultrasounds HISTORY: neck pain and swelling CT DLP: 387.1 (accession [id number]), 309.4 (accession [id number]) mGycm. Automated Exposure Control for Dose Reduction was Utilized. TECHNIQUE: CT scan of the neck and cervical spine are obtained without contrast, axial images are ob tained, sagittal and coronal reformatted images are also reviewed. FINDINGS: Cervical spine: Cervical spine is redemonstrated in its entirety from C1 through upper thoracic levels, demonstrates stable and straightened alignment without evidence of acute fracture or dislocation. Prevertebral so ft tissue appears within normal limits. The C1-C2 articulation is within normal limits on the snell l images. Vertebral body heights are maintained. Moderate to severe disc space narrowing and moderate spurring at C5-C6 and C6-C7 levels. Posterior spurring effaces the anterior thecal sac at these leve ls. Review of axial images shows C2-C3 and C3-C4 level to appear within normal limits. Axial images at C4-C5 level a left-sided uncovertebral facet degenerative changes and mild broad-base d posterior disc protrusion causing mild to moderate bilateral neural foraminal narrowing. Axial images at C5-C6 level show posterior spur disc complex effacing the anterior thecal sac and cau sing moderate left greater than right bilateral neural foraminal narrowing Axial images at C6-C7 level show posterior spur disc complex effacing the anterior thecal sac and cau sing moderate to advanced right greater than left bilateral neural foraminal narrowing. Axial images at C7-T1 level appear within normal limits. IMPRESSION: Straightening of cervical spine with multilevel degenerative changes greatest at the C4-C 5 through C6-C7 levels as detailed above. Neck: FINDINGS: Lack of IV contrast is noted to lower sensitivity for evaluation for mucosal lesions and garcia bcentimeter lymph nodes. Airway: Persistent markedly enlarged heterogeneous right thyroid nodule which has been sampled in the past, correlate clinically. Local mass effect and airway deviated to left of midline. Lesion increas e in size from 2014 CT. Mild emphysematous changes visualized on apices. Parotid/submandibular glands: No gross abnormality seen. Carotid/Vascular Structures: Mild calcified plaque left carotid bulb. Other: No definitive greater than 1 cm neck adenopathy. Streak artifact from significant dental work noted. IMPRESSION: Heterogeneous large right thyroid nodule with local mass effect redemonstrated. Correlate clinically.
--- NOTE | 2021-04-10 15:56 | US ---
EXAMINATION TYPE: US thyroid st tissue head/neck DATE OF EXAM: 04/09/2021 COMPARISON: 04/28/2020 CLINICAL HISTORY: Thyroid Nodule R Side E04.1. Thyroid nodule GLAND SIZE: Right Lobe: 8.9 x 3.7 x 5.7 cm Overall Parenchyma: heterogenous Left Lobe: 4.2 x 1.0 x 1.5 cm Overall Parenchyma: homogeneous Isthmus Thickness: .2 cm NODULES RIGHT: # of nodules measured on right: The right lobe thyroid is grossly heterogeneous without evid ence of discrete nodule or cyst. LEFT: # of nodules measured on left: 0 the left lobe of the thyroid gland is also heterogeneous. ISTHMUS: # of nodules measured in the isthmus: 0 Bilateral neck scanned, no evidence of lymphadenopathy. IMPRESSION: Right lobe of the thyroid gland is enlarged and diffusely heterogeneous without discrete nodule or cy st. Consider thyroiditis. The left lobe of the thyroid gland is also heterogeneous.
== END | disposition home or self-care (01) ==
LOC: RADUSWWP 15:46
PROVIDERS: ATTEND Otolaryngology
DX: E04.1 Nontoxic single thyroid nodule (principal)
CPT/HCPCS: 70490; 72125; 76536

== ENCOUNTER → 2021-07-09 | Outpatient (CLI) | payer MEDICARE ==
[2021-07-09 13:03] VITALS: BP 119/73; PULSE 73; TEMP 98.6
--- NOTE | 2021-07-09 13:31 | P.PAINCN ---
History of Present Illness - Reason for Consult Consult date: 07/09/21 - History of Present Illness This is a 61 years old female with a chronic history of severe neck pain, started more than a year ago, pain is constant and increases with any neck movement, confusion with the quality of life, he denies any motor or sensory deficit she denies any fever or night sweats, she had occasional numbness and tingling sensation in the upper extremity, patient tried chiropractics without any improvement of her pain. Past Medical History Past Medical History: Hyperlipidemia, Osteoarthritis (OA), Pneumonia Additional Past Medical History / Comment(s): IBS, ,hx. of arrythmia-not sure what it is called-no tx. 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 kidney stones twice History of Any Multi-Drug Resistant Organisms: None Reported Past Surgical History: Heart Catheterization, Joint Replacement, Orthopedic Surgery, Tonsillectomy Additional Past Surgical History / Comment(s): 09/23/16 total R knee arthroplasty. Other surgical hx: [facility] surg., cystoscopy for kidney stones x 2, shoulder surgery - rotator cuff repairbil, colonoscopy and EGD, biopsy of thyroid nodule times 2 in past Past Anesthesia/Blood Transfusion Reactions: Family History of Problems w/ Anesthesia Additional Past Anesthesia/Blood Transfusion Reaction / Comm: states "last year sister had problems with anesthesia-put b/p through the roof and something else- I don't don't,prior to that she never had any problems." Past Psychological History: No Psychological Hx Reported Additional Psychological History / Comment(s): Pt resides with her spouse. She is independent. Smoking Status: Former smoker Past Alcohol Use History: None Reported Additional Past Alcohol Use History / Comment(s): quit smoking approx 1981, smoked approx 20 yrs-1ppd Past Drug Use History: None Reported - Past Family History Mother Family Medical History: Cancer Additional Family Medical History / Comment(s): bile duct Sister(s) Family Medical History: Cancer Additional Family Medical History / Comment(s): breast Medications and Allergies Home Medications Medication Instructions Recorded Confirmed Type L.acidoph,Paracasei, B.lactis 1 cap PO HS 09/10/16 07/09/21 History [Probiotic] Aspirin 81 mg PO HS 11/08/16 07/09/21 History Cholecalciferol (Vitamin D3) 4,000 unit PO HS 05/12/19 07/09/21 History [Vitamin D3] calcium polycarbophiL [Fibercon] 2 tab PO HS 06/08/19 07/09/21 History Omeprazole [PriLOSEC] 40 mg PO DAILY PRN 04/21/20 07/09/21 History Calcium/Magnesium/Zinc 1 each PO DAILY 12/05/20 07/09/21 History [Cfbguem-Yazqgnhed-Ueqn Tablet] Rosuvastatin Calcium [Crestor] 10 mg PO HS 12/05/20 07/09/21 History Allergies Allergy/AdvReac Type Severity Reaction Status Date / Time Sulfa (Sulfonamide Allergy Unknown Verified 12/05/20 14:51 Antibiotics) milk AdvReac Diarrhea Verified 12/05/20 14:51 tramadol AdvReac vertigo Verified 12/05/20 14:51 mushrooms AdvReac severe Uncoded 12/05/20 14:51 dehydration, N/V Physical Exam Vitals: Vital Signs Temp Pulse BP Pulse Ox 07/09/21 12:56 98.6 F 73 119/73 96 Intake and Output 07/08/21 07/09/21 07/09/21 22:59 06:59 14:59 Other: Weight 81.647 kg Physical Examinations : -Constitutiona : Cooperative , not in acute distress . -HEENT : nech : supple , no Lymphadenopathy , normal thyroid size . : eyes : no ptosis , no icterus, no photophobia . - neurologic : Cranial nerve II to XII intact , no focal neurological deffecit . -psychatric : alert , oriented X 3 , appropriate affect , intact judgment and insight . -Lymphatic : no Lymphadenopathy . - musculoskeltal : Cervical Spine motor stregnth in the deltoid and biceps, normal right side , normal Left side motor stregnth biceps and the wrist extensors normal right side ,normal left side . motor stregnth in the triceps muscle . normal Right side , normal Left side deep tendon reflexes normal at the biceps , normal at Brachioradialis , normal at triceps. cervical facet loading test: Positive Bilaterally Spurling test= positive Right , positive left. Neck distraction test= positive Right , positive left. Krys sign= positive right, positive left . Lumber spine moter stegnth lower extremities ,thigh and legs 5/5 Right side , 5/5 Left side Results Comments: MRI of the cervical spine C3 4 disc bulging and facet joint arthropathy and right-sided foraminal narrowing at C4 5 disc bulging and bilateral neuroforaminal narrowing and facet joint arthropathy C5 6 spinal canal narrowing and foraminal stenosis and facet arthropathy Assessment and Plan Plan: Assessment and plan=1-cervical spondylosis with cervical facet arthropathy without myelopathy. 2-cervical degenerative disc disease. 3-cervical foraminal stenosis. Patient could benefit from agnostic medial branch block cervical area at C3 , C4 , C5 bilaterally and possible RFA Time with Patient: Greater than 30 PQRS Measure Charge Sheet Measure #130: Documentation of Current Meds in Medical Chart: Patient's medications documented in chart Measure #226: Tobacco Use: Screen & Cessation Intervention: Pt not a tobacco user Measure #111: Pneumonia Vaccination: Pneumococcal vaccine administered or previously received Measure #47: Advance Care Plan: Advance care planning discussed & documented, pt chose/unable to give Measure #412: Opioid Treatment Agreement: No documentation of signed opioid treatment agreement Measure #408: Opioid Therapy Follow-up Evaluation: Patient had NO f/u eval minimum every 3 months during opioid therapy Measure #317: Preventitive Care & Scrn High Bld Press & F/U: Normal blood pressure, f/u not required Measure #128: Body Mass Index (BMI) Screening & Follow-up: BMI documented ABOVE normal parameters - f/u documented Measure #131: Pain Assessment & Follow-up: Pain positive & plan documented, Follow-up scheduled Measure #431: Unhealthy Alcohol Use Preventative Care & Scrn: Patient not identified as an unhealthy alcohol user PQRS Narrative: Smoking Status Former smoker Blood Pressure 119/73 Pain Intensity [Neck] 2 Scale Used Numeric (1 - 10) Hx Alcohol Use (MH) No Home Medications: Ambulatory Orders L.acidoph,Paracasei, B.lactis [Probiotic] 1 cap PO HS 09/10/16 Aspirin 81 mg PO HS 11/08/16 Cholecalciferol (Vitamin D3) [Vitamin D3] 4,000 unit PO HS 05/12/19 calcium polycarbophiL [Fibercon] 2 tab PO HS 06/08/19 Omeprazole [PriLOSEC] 40 mg PO DAILY PRN 04/21/20 Calcium/Magnesium/Zinc [Sluiwsn-Vpyjbdamf-Wxax Tablet] 1 each PO DAILY 12/05/20 Rosuvastatin Calcium [Crestor] 10 mg PO HS 12/05/20
== END ==
LOC: PNWHC3 12:29
PROVIDERS: ATTEND Specialist
DX: M47.812 Spondylosis without myelopathy or radiculopathy, cervical region (principal); M50.30 Other cervical disc degeneration, unspecified cervical region; M48.02 Spinal stenosis, cervical region; M19.90 Unspecified osteoarthritis, unspecified site; E78.5 Hyperlipidemia, unspecified; Z87.891 Personal history of nicotine dependence; Z88.2 Allergy status to sulfonamides; Z88.5 Allergy status to narcotic agent; Z91.011 Allergy to milk products; Z91.018 Allergy to other foods
CPT/HCPCS: 99211

== ENCOUNTER 2021-08-31 15:08 | Outpatient (CLI) | payer MEDICARE | END 2021-08-31 15:33 | disposition home or self-care (01) | LOC: LABWHC1 15:08 | PROVIDERS: ATTEND Physician Assistant Medical | DX: Z53.9 Procedure and treatment not carried out, unspecified reason (principal) ==

== ENCOUNTER → 2021-09-26 | Outpatient (CLI) | payer MEDICARE ==
--- NOTE | 2021-09-26 15:30 | US ---
EXAMINATION TYPE: US thyroid st tissue head/neck DATE OF EXAM: 09/26/2021 COMPARISON: NONE CLINICAL HISTORY: 71-year-old female E04.1 Thyroid nodule follow-up. TECHNIQUE: Multiple sonographic images of the thyroid gland are obtained. FINDINGS: GLAND SIZE: Right Lobe: 7.5 x 3.7 x 5.6 cm Overall Parenchyma: heterogenous Left Lobe: 4.2 x 1.2 x 1.4 cm Overall Parenchyma: heterogeneous Isthmus Thickness: 0.3 cm NODULES RIGHT: # of nodules measured on right: Markedly heterogeneous with poorly defined cystic areas with in. No well-defined, discrete nodule. LEFT: # of nodules measured on left: 0 ISTHMUS: # of nodules measured in the isthmus: 0 Bilateral neck scanned, no evidence of lymphadenopathy. IMPRESSION: Redemonstrated markedly enlarged and heterogeneous right lobe of the thyroid gland with poorly define d cystic areas within. No discrete suspicious solid nodule is identified.
== END | disposition home or self-care (01) ==
LOC: RADUSWWP 12:09
PROVIDERS: ATTEND Otolaryngology
DX: E04.9 Nontoxic goiter, unspecified (principal)
CPT/HCPCS: 76536

== ENCOUNTER → 2021-11-15 | Outpatient (CLI) | payer MEDICARE ==
--- NOTE | 2021-11-15 13:46 | US ---
EXAMINATION TYPE: US venous doppler duplex LE LT DATE OF EXAM: 11/15/2021 1:11 PM COMPARISON: NONE CLINICAL HISTORY: 71-year-old female R22.40 SWELLING/MASS AND LUMP. SIDE PERFORMED: Left TECHNIQUE: The lower extremity deep venous system is examined utilizing real time linear array sonog harry with graded compression, doppler sonography and color-flow sonography. FINDINGS: VESSELS IMAGED: Common Femoral Vein Deep Femoral Vein Greater Saphenous Vein * Femoral Vein Popliteal Vein Small Saphenous Vein * Proximal Calf Veins (* superficial vessels) Left Leg: Appears negative for DVT [employer] notes:Scanned left lateral knee at patient's area of pain: appears wnl IMPRESSION: 1. No evidence for DVT within the left lower extremity imaged from the groin to the upper calf. 2. Additional targeted scanning along the left lateral aspect of the knee at the site of patient's pa in. No discrete abnormality of the superficial soft tissues.
== END | disposition home or self-care (01) ==
LOC: RADUSWWP 12:44
PROVIDERS: ATTEND Family Medicine
DX: R22.42 Localized swelling, mass and lump, left lower limb (principal)

== ENCOUNTER → 2021-12-28 | Outpatient (CLI) | payer MEDICARE ==
[2021-12-28 19:47] LABS: Basophils # (A) 0.02 X 10*3/uL (0.00-0.10); Basophils % (A) 0.3 %; Eosinophils % (A) 1.3 %; HCT 47.2 % (37.2-46.3); HGB 15.5 g/dL (12.0-15.0); Lymphocytes # (A) 1.65 X 10*3/uL (0.90-5.00); Lymphocytes % (A) 21.9 %; MCH 29.8 pg (27.0-32.0); MCHC 32.8 g/dL (32.0-37.0); MCV 90.6 fL (80.0-97.0); Mean Platelet Volume 10.6 fL (9.5-12.2); Monocytes # (A) 0.52 X 10*3/uL (0.20-1.00); Monocytes % (A) 6.9 %; Neutrophils % (A) 69.2 %; Platelet Count 193 X 10*3/uL (140-440); RBC 5.21 X 10*6/uL (4.10-5.20); RDW 11.8 % (11.5-14.5); WBC 7.52 X 10*3/uL (4.50-10.00)
[2021-12-28 19:59] LABS: African American GFR (CKD) 103.2 (60.0-200.0); Albumin 4.6 g/dL (3.8-4.9); Albumin/Globulin Ratio 1.52 (1.60-3.17); Anion Gap 13.4 mmol/L (10.00-18.00); BUN/Creat Ratio 21.64 Ratio (12.00-20.00); Blood Urea Nitrogen 14.5 mg/dL (9.0-27.0); C Reactive Protein, High Sens 5.55 mg/L (0.000-3.000); Calcium 9.9 mg/dL (8.7-10.3); Carbon Dioxide 22.8 mmol/L (20.0-27.5); Non-African American GFR(CKD) 89.1 (60.0-200.0); Potassium 4.2 mmol/L (3.5-5.5); Total Bilirubin 1.1 mg/dL (0.30-1.20); Total Protein 7.6 g/dL (6.2-8.2)
[2021-12-28 21:05] LABS: Erythrocyte Sedimentation Rate 10 mm/Hr (0-30)
== END | disposition home or self-care (01) ==
LOC: LABWHC1 13:44
PROVIDERS: ATTEND Internal Medicine Interventional Cardiology
DX: R06.09 Other forms of dyspnea (principal)
CPT/HCPCS: 36415; 80053; 85025; 85652; 86141

== ENCOUNTER → 2022-01-10 | Outpatient (CLI) | payer MEDICARE ==
[2022-01-10 13:09] VITALS: BP 123/66; PULSE 79; RESP 20; TEMP 98.3
--- NOTE | 2022-01-10 13:53 | P.GSHP ---
History of Present Illness H&P Date: 01/10/22 Chief Complaint: genetic testing variant of unknown significance Annelise is a 71 year old female seen in consultation for Dr. Hillman regarding breast cancer risk. She has a family history of sister and maternal aunt with breast cancer. She had genetic testing done and a variant of unknown significance was found. She had a bilateral mammogram and left breast ultrasound done at [facility] in October of 2021. This showed a small lesion in her left breast. At times she has left breast pain in the aerola area. It is intermittent. Nothing seems to precipitate it or make it better or worse. She is not complaining of any lumps masses or nodules of concern in either breast. She's not had any recent trauma or infection in the breast. She has never had any breast biopsies or surgery. The patient has had a history of skin cancer. Adrianne Risk Evaluation: 5 year risk: 3.4% vs. 2.2% lifetime risk: 9.7% vs. 6.3% Caffeine:24 oz/day nicotine: none; stopped 39 years ago chocolate: weekly BCP: 2 years at 21 hormones: < 1 month at menopause Family History: sister: breast cancer at 70 maternal aunt: breast cancer maternal grandfather: cancer ? type mother: bile duct cancer paternal aunt: skin cancer Hormonal History: menarche: 13 , breast fed: yes, age to first : 26 menopause: 51 BCP: 2 years hormones: < 1 month Surgical history: total knee replacement right knee bilateral rotator cuffs bilateral little toes tonsilectomy dental surgery implants lower/upper teeth bone rebuilt up 2 stress tests Medical History: IBS irregular heart beat follows with cardiology Social History: nicotine: stopped 39 years ago alcohol: none drugs: none - Constitutional Constitutional: Reports sweats - EENT Comment: mass right side of neck; ultrasound every 6 months and has had a biopsy; followed by DR. Nye Eyes: denies blurred vision, denies pain Ears: bilateral: decreased hearing, deny: tinnitus Ears, nose, mouth and throat: Denies headache, Denies sore throat - Breasts Breasts: bilateral: as per HPI - Cardiovascular Cardiovascular: Reports as per HPI, Reports shortness of breath - Respiratory Respiratory: Reports cough - Gastrointestinal Gastrointestinal: Denies diarrhea - Genitourinary (Female) Genitourinary: Denies dysuria, Denies hematuria - Menstruation Menstruation: Reports postmenopausal - Musculoskeletal Musculoskeletal: Reports neck pain - Integumentary Integumentary: Denies pruritus, Denies rash - Neurological Neurological: Denies numbness, Denies weakness - Psychiatric Psychiatric: Denies anxiety, Denies depression - Endocrine Endocrine: Reports weight change - Hematologic/Lymphatic Comment: baby aspirin daily - Allergic/Immunologic Allergic/Immunologic: Reports as per HPI Past Medical History Past Medical History: Hyperlipidemia, Osteoarthritis (OA), Pneumonia Additional Past Medical History / Comment(s): IBS, ,hx. of arrythmia-not sure what it is called-no tx. 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 kidney stones twice, lichens sclerosis History of Any Multi-Drug Resistant Organisms: None Reported Past Surgical History: Heart Catheterization, Joint Replacement, Orthopedic Surgery, Tonsillectomy Additional Past Surgical History / Comment(s): 09/23/16 total R knee arthroplasty. Other surgical hx: juan antonio foot surg., cystoscopy for kidney stones x 2, shoulder surgery - rotator cuff repairbil, colonoscopy and EGD, bio psy of thyroid nodule times 2 in past , oral surgery 2021 Past Anesthesia/Blood Transfusion Reactions: Family History of Problems w/ Anesthesia Additional Past Anesthesia/Blood Transfusion Reaction / Comment(s): states "last year sister had problems with anesthesia-put b/p through the roof and something else-I don't don't,prior to that she never had any problems." Past Psychological History: No Psychological Hx Reported Additional Psychological History / Comment(s): Pt resides with her spouse. She is independent. Smoking Status: Former smoker Past Alcohol Use History: None Reported Additional Past Alcohol Use History / Comment(s): quit smoking approx 1981, smoked approx 20 yrs-1ppd Past Drug Use History: None Reported - Past Family History Mother Family Medical History: Cancer Additional Family Medical History / Comment(s): bile duct Sister(s) Family Medical History: Cancer Additional Family Medical History / Comment(s): breast Medications and Allergies Home Medications Medication Instructions Recorded Confirmed Type L.acidoph,Paracasei, B.lactis 1 cap PO HS 09/10/16 01/10/22 History [Probiotic] Aspirin 81 mg PO HS 11/08/16 01/10/22 History Cholecalciferol (Vitamin D3) 4,000 unit PO HS 05/12/19 01/10/22 History [Vitamin D3] calcium polycarbophiL [Fibercon] 2 tab PO HS 06/08/19 01/10/22 History Omeprazole [PriLOSEC] 40 mg PO DAILY PRN 04/21/20 01/10/22 History Calcium/Magnesium/Zinc 1 each PO DAILY 12/05/20 01/10/22 History [Hwzospy-Ufobtsipj-Yode Tablet] Rosuvastatin Calcium [Crestor] 10 mg PO HS 12/05/20 01/10/22 History Allergies Allergy/AdvReac Type Severity Reaction Status Date / Time Sulfa (Sulfonamide Allergy Unknown Verified 01/10/22 12:56 Antibiotics) milk AdvReac Diarrhea Verified 01/10/22 12:56 tramadol AdvReac vertigo Verified 01/10/22 12:56 mushrooms AdvReac severe Uncoded 01/10/22 12:56 dehydration, N/V Surgical - Exam Vital Signs Temp Pulse Resp BP Pulse Ox 98.3 F 79 20 123/66 95 01/10/22 12:59 01/10/22 12:59 01/10/22 12:59 01/10/22 12:59 01/10/22 12:59 BMI 31.8 - General no distress - Eyes normal ocular movement - Neck trachea midline - Respiratory normal respiratory effort - Cardiovascular Rhythm: regular Heart Sounds: normal: S1, S2 - Abdomen Abdomen: soft - Integumentary normal turgor - Neurologic no disoriented, no combative - Musculoskeletal normal gait - Psychiatric oriented to time, oriented to person, oriented to place, speech is normal, memory intact Breast Exam: BRA: ? size cup D inspection: Left breast slightly larger than right breast Palpation: Right breast: Multi-positional exam fibrocystic changes no dominant masses or nodules of concern Right axilla: No adenopathy of concern Left breast: Multi-positional exam no dominant masses or nodules of concern Left axilla: No adenopathy of concern Results Mammogram results not available at this time Assessment and Plan Assessment: Impression: Variant of unknown significance detected this was reported [id number] fibrocystic breast disease family history of breast cancer Plan: 1. Obtain results of mammogram and ultrasound from [facility] done 1221 2. Lateral mammogram 1 year with physician exam at that time 3. Left breast mammogram and ultrasound in 6 months as per verbal report and follow-up. At that time CC: Dr. Hillman
== END ==
LOC: WWCWWP 12:42
PROVIDERS: ATTEND Surgery
DX: R92.8 Other abnormal and inconclusive findings on diagnostic imaging of breast (principal); N60.11 Diffuse cystic mastopathy of right breast; E78.5 Hyperlipidemia, unspecified; M19.90 Unspecified osteoarthritis, unspecified site; Z87.891 Personal history of nicotine dependence; Z80.3 Family history of malignant neoplasm of breast; Z88.2 Allergy status to sulfonamides; Z91.011 Allergy to milk products; Z88.6 Allergy status to analgesic agent; Z91.018 Allergy to other foods

== ENCOUNTER → 2022-05-06 | Outpatient (CLI) | payer MEDICARE ==
--- NOTE | 2022-05-06 14:44 | USB ---
Reason for Exam: Follow-up at short interval from prior study. Additional evaluation requested from prior study. Last screening mammogram was performed 6 month(s) ago. Patient History: Menarche at age 13. First Full-Term at age 26. Postmenopausal. Patient tested for BRCA1 outcome was negative. Maternal aunt had breast cancer. Sister had breast cancer. Last menstrual period: 08/24/2011 Risk Values: Adrianne 5 year model risk: 3.4%. NCI Lifetime model risk: 9.7%. Prior Study Comparison: 10/25/2019 Bilateral MG 3D screening mammo w/cad, [facility]. 10/25/2020 Bilateral MG 3D screening mammo w/cad, [facility]. 10/26/2021 Bilateral MG 3D screening mammo w/cad, [facility]. 11/05/2021 Left MG 3D diag mammo w/cad LT, [facility]. Tissue Density: Left: The breast tissue is heterogeneously dense. This may lower the sensitivity of mammography. Findings: Analyzed By CAD. Mammogram . Technique: Method: Whole Breast Handheld. Findings: The whole breast of the left breast, the axilla of the left breast and the retroareolar of the left breast were scanned. Finding 1: Simple cyst. Laterality: Left. Size 4 x 4 x 5 mm. 1 O'clock 4 cm cm from nipple. Overall Assessment: Probably benign, BI-RAD 3 Assessment: MG 3D diag mammo w/cad LT - Left: Incomplete: need additional imaging evaluation, BI-RAD 0. US breast LT - Left: Probably benign, BI-RAD 3. Management: Diagnostic Breast Ultrasound of the left breast in 6 months. A clinical breast exam by your physician is recommended on an annual basis and results should be correlated with mammographic findings. Results were given to the patient verbally at the time of exam. Electronically signed and approved by: Frandy Becerra M.D. Radiologis
== END | disposition home or self-care (01) ==
LOC: RADMAMWWP 12:52
PROVIDERS: ATTEND Surgery
DX: R92.8 Other abnormal and inconclusive findings on diagnostic imaging of breast (principal); N60.02 Solitary cyst of left breast; Z78.0 Asymptomatic menopausal state; Z80.3 Family history of malignant neoplasm of breast
CPT/HCPCS: 77065; 76641; G0279; 77061

== ENCOUNTER → 2022-05-07 | Outpatient (CLI) | payer MEDICARE ==
[2022-05-07 09:04] LABS: African American GFR (CKD) >90 (>60 ml/min/1.73 sqM); Blood Urea Nitrogen 16 mg/dL (7-17); Non-African American GFR(CKD) >90 (>60 ml/min/1.73 sqM)
--- NOTE | 2022-05-07 09:52 | CT ---
EXAMINATION TYPE: CT soft tissue neck w con DATE OF EXAM: 05/07/2022 9:28 AM COMPARISON: CT dated 04/09/2021 HISTORY: Neck mass. Recent biopsy. CT DLP: 502.2 mGycm Automated exposure control for dose reduction was used. CONTRAST: CT scan of the neck is performed following with IV Contrast, patient injected with 100ml mL of Isovue 300. Axial images are obtained, coronal and sagittal reformatted images are reviewed. FINDINGS: Redemonstration of the previously seen large centrally necrotic/cystic lesion arising from the right thyroid lobe measuring 4.5 x 6.9 x 8.8 cm compared to 4 x 5.8 x 8.2 cm previously. There is evident r etrosternal extension of the lesion seen passing posterior to the right sternoclavicular joint. The r ight common carotid artery and right internal jugular vein are splayed over the lesion with displacem ent of the trachea, esophagus, adjacent larynx and pharynx to the left side by the mass. Grossly unre markable left thyroid lobe and thyroid isthmus. Unremarkable nasopharynx, oropharynx, hypopharynx, larynx and visualized portion of the trachea and e sophagus. Symmetrical unremarkable parotid and submandibular salivary glands. No pathologically enlar ged lymph nodes in the neck. Scattered arterial atherosclerotic calcifications. Patent major hepatic vessels. Unremarkable visualized portion of the brain and orbits. Lingular pulmonary atelectasis. Deg enerative changes of the cervical spine. IMPRESSION: Large right third lobe nodule with retrosternal extension and local mass effect as detailed above, pr ogressed compared to the previous CT scan as detailed above. Recommend surgical consultation. Other f indings as described above.
== END | disposition home or self-care (01) ==
LOC: RADCTMAIN 07:48
PROVIDERS: ATTEND Otolaryngology
DX: E04.1 Nontoxic single thyroid nodule (principal)
CPT/HCPCS: 82565; 84520; 70491; 36415; Q9967

== ENCOUNTER → 2022-05-07 | Outpatient (CLI) | payer MEDICARE ==
--- NOTE | 2022-05-07 18:44 | US ---
EXAMINATION TYPE: US thyroid st tissue head/neck DATE OF EXAM: 05/07/2022 COMPARISON: CT 05/07/2022 and ultrasound 09/26/2021 CLINICAL HISTORY: 71-year-old female E04 NONTOXIC DIFFUSE GOITER. 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 Enlarged right thyroid gland, irregular shaped cystic area mid measuring 3.6 x 1.3 x 3.7cm IMPRESSION: Markedly enlarged and heterogeneous right lobe of the thyroid gland. An internal cystic area is large r from 09/26/2021 measuring up to 3.7 cm versus 3.0 cm, previously. There is provided history of recen t biopsy of the right lobe. The apparent enlarged right lobe may represent a large nodule occupying t his space. Correlate with biopsy results.
== END | disposition home or self-care (01) ==
LOC: RADUSWWP 13:07
PROVIDERS: ATTEND Otolaryngology
DX: E04.0 Nontoxic diffuse goiter (principal)
CPT/HCPCS: 76536

== ENCOUNTER → 2022-05-09 | Outpatient (CLI) | payer MEDICARE ==
[2022-05-09 16:22] VITALS: BP 100/66; PULSE 71; RESP 17; TEMP 98.2
--- NOTE | 2022-05-09 16:35 | P.PN ---
Subjective Progress Note Date: 05/09/22 Principal diagnosis: Breast surveillance Annelise is a 71 year old female seen in consultation for Dr. Hillman regarding breast cancer risk. She has a family history of sister and maternal aunt with breast cancer. She had genetic testing done and a variant of unknown significan ce was found. She had a bilateral mammogram and left breast ultrasound done at [facility] in October of 2021. This showed a small lesion in her left breast. After evaluation it was recommended she have a left mammogram and ultrasound in 6 months. The patient underwent a 3D left breast diagnostic mammogram and ultrasound on 05-06-22. This was BIRAD 3 and bilateral mammogram in 6 months recommended. She is not complaining of any lumps masses or nodules in either breast. At times she has left breast pain in the aerola area. It is intermittent. Nothing seems to precipitate it or make it better or worse. She is not complaining of any lumps masses or nodules of concern in either breast. She's not had any recent trauma or infection in the breast. She has never had any breast biopsies or surgery. The patient has had a history of skin cancer. Adrianne Risk Evaluation: 5 year risk: 3.4% vs. 2.2% lifetime risk: 9.7% vs. 6.3% Caffeine:24 oz/day nicotine: none; stopped 39 years ago chocolate: weekly BCP: 2 years at 21 hormones: < 1 month at menopause Family History: sister: breast cancer at 70 maternal aunt: breast cancer maternal grandfather: cancer ? type mother: bile duct cancer paternal aunt: skin cancer Hormonal History: menarche: 13 , breast fed: yes, age to first : 26 menopause: 51 BCP: 2 years hormones: < 1 month Surgical history: total knee replacement right knee bilateral rotator cuffs bilateral little toes tonsilectomy dental surgery implants lower/upper teeth bone rebuilt up 2 stress tests neck biopsy dental implants Medical History: IBS irregular heart beat follows with cardiology Social History: nicotine: stopped 39 years ago alcohol: none drugs: none - Constitutional Constitutional: Reports sweats - EENT Comment: mass right side of neck; ultrasound every 6 months and has had a biopsy; followed by DR. Nye Eyes: denies blurred vision, denies pain Ears: bilateral: decreased hearing, deny: tinnitus Ears, nose, mouth and throat: Denies headache, Denies sore throat - Breasts Breasts: bilateral: as per HPI - Cardiovascular Cardiovascular: Reports as per HPI, Reports shortness of breath - Respiratory Respiratory: Reports cough - Gastrointestinal Gastrointestinal: Denies diarrhea - Genitourinary (Female) Genitourinary: Denies dysuria, Denies hematuria - Menstruation Menstruation: Reports postmenopausal - Musculoskeletal Musculoskeletal: Reports neck pain - Integumentary Integumentary: Denies pruritus, Denies rash - Neurological Neurological: Denies numbness, Denies weakness - Psychiatric Psychiatric: Denies anxiety, Denies depression - Endocrine Endocrine: Reports weight change - Hematologic/Lymphatic Comment: baby aspirin daily - Allergic/Immunologic Allergic/Immunologic: Reports as per HPI Objective - Vital Signs Vital signs: Vital Signs Temp 98.2 F 05/09/22 16:19 Pulse 71 05/09/22 16:19 Resp 17 05/09/22 16:19 BP 100/66 05/09/22 16:19 Pulse Ox 95 05/09/22 16:19 FiO2 Intake & Output 05/08/22 05/09/22 05/09/22 18:59 06:59 18:59 Weight 81.647 kg - Exam BMI: 30.9 - Constitutional General appearance: Present: cooperative - EENT Eyes: Present: EOMI ENT: Present: hearing grossly normal - Neck Neck: Present: normal ROM - Respiratory Respiratory: bilateral: CTA - Cardiovascular Heart sounds: normal: S1, S2 - Integumentary Integumentary: Present: normal turgor - Musculoskeletal Musculoskeletal: Present: gait normal - Psychiatric Psychiatric: Present: A&O x's 3, appropriate affect, intact judgment & insight - Additional findings Additional findings: Breast Examination: BRA: 40D Inspection: left breast larger than right breast, bilateral grade 3 ptosis Palpation: Right breast: Multiple positional exam fibrocystic changes no dominant masses or not is of concern Right axilla: No adenopathy of concern Left breast: Multiple transitional exam fibrocystic changes of dominant masses or nodules of concern Left axilla: No adenopathy of concern Assessment and Plan Assessment: Impression: Fibrocystic breast changes, recent left breast mammogram and ultrasound BIRADS 3 patient is due for bilateral mammogram in 6 months Plan: Bilateral mammogram 6 months Follow-up sooner any questions or concerns CC: Dr. Morris
== END ==
LOC: WWCWWP 15:27
PROVIDERS: ATTEND Surgery
DX: N60.11 Diffuse cystic mastopathy of right breast (principal); N60.12 Diffuse cystic mastopathy of left breast; Z87.891 Personal history of nicotine dependence; Z88.2 Allergy status to sulfonamides; Z91.011 Allergy to milk products; Z91.018 Allergy to other foods; Z88.5 Allergy status to narcotic agent

== ENCOUNTER → 2022-11-07 | Outpatient (CLI) | payer MEDICARE ==
--- NOTE | 2022-11-07 11:40 | MM ---
Reason for Exam: Follow-up at short interval from prior study. Last screening mammogram was performed 12 month(s) ago. Patient History: Menarche at age 13. First Full-Term at age 26. Postmenopausal. Patient tested for BRCA1 outcome was negative. Maternal aunt had breast cancer. Sister had breast cancer. Risk Values: Adrianne 5 year model risk: 3.4%. NCI Lifetime model risk: 9.3%. Tissue Density: There are scattered fibroglandular densities. Findings: Analyzed By CAD. Pattern appears symmetrical and stable. No suspicious spiculated or lobular masses clustered microcalcifications or architectural distortion radiographically apparent. There is a stable rounded density consistent and in calcification in the 1:00 position left breast anterior position which appears to correlate with the prior ultrasound cyst. No change in size is evident in. Overall Assessment: Benign, BI-RAD 2 Management: Screening Mammogram of both breasts in 1 year. A clinical breast exam by your physician is recommended on an annual basis and results should be correlated with mammographic findings. This exam should not preclude additional follow-up of suspicious palpable abnormalities. Results were given to the patient verbally at the time of exam. Electronically signed and approved by: Matteo Cody D.O. Radiologis
--- NOTE | 2022-11-07 12:03 | P.PN ---
Subjective Progress Note Date: 11/07/22 Principal diagnosis: fibrocystic breast disease Breast surveillance Annelise is a 72 year old female seen initially in consultation for Dr. Hillman regarding breast cancer risk. She has a family history of sister and maternal aunt with breast cancer. She had genetic testing done and a variant of unknown significance was found. She had a bilateral mammogram and left breast ultrasound done at [facility] in October of 2021. This showed a small lesion in her left breast. After evaluation it was recommended she have a left mammogram and ultrasound in 6 months. The patient underwent a 3D left breast diagnostic mammogram and ultrasound on 05-06-22. This was BIRAD 3 and bilateral mammogram in 6 months recommended. she had a bilateral mammogram on 11-07-22 which was reviewed with Dr. Block as a BIRADS 2. She is not complaining of any lumps masses or nodules in either breast. She is not complaining of any pain in her breast at this time. She's not had any recent trauma or infection in the breast. She has never had any breast biopsies or surgery. The patient has had a history of skin cancer. Adrianne Risk Evaluation: 5 year risk: 3.4% vs. 2.2% lifetime risk: 9.3% vs. 6.3% We have discussed chemoprevention and she is not interested in this at this time. Caffeine:24 oz/day nicotine: none; stopped 39 years ago chocolate: weekly BCP: 2 years at 21 hormones: < 1 month at menopause Family History: sister: breast cancer at 70 maternal aunt: breast cancer maternal grandfather: cancer ? type mother: bile duct cancer paternal aunt: skin cancer Hormonal History: menarche: 13 , breast fed: yes, age to first : 26 menopause: 51 BCP: 2 years hormones: < 1 month Surgical history: total knee replacement right knee bilateral rotator cuffs bilateral little toes tonsilectomy dental surgery implants lower/upper teeth bone rebuilt up 2 stress tests neck biopsy dental implants thyroid resection no cancer Medical History: IBS irregular heart beat follows with cardiology Social History: nicotine: stopped 39 years ago alcohol: none drugs: none - Constitutional Constitutional: Reports sweats - EENT Comment: mass right side of neck; ultrasound every 6 months and has had a biopsy; followed by DR. Nye Eyes: denies blurred vision, denies pain Ears: bilateral: decreased hearing, deny: tinnitus Ears, nose, mouth and throat: Denies headache, Denies sore throat - Breasts Breasts: bilateral: as per HPI - Cardiovascular Cardiovascular: Reports as per HPI, Reports shortness of breath - Respiratory Respiratory: Reports cough - Gastrointestinal Gastrointestinal: Denies diarrhea - Genitourinary (Female) Genitourinary: Denies dysuria, Denies hematuria - Menstruation Menstruation: Reports postmenopausal - Musculoskeletal Musculoskeletal: Reports neck pain - Integumentary Integumentary: Denies pruritus, Denies rash - Neurological Neurological: Denies numbness, Denies weakness - Psychiatric Psychiatric: Denies anxiety, Denies depression - Endocrine Endocrine: Reports weight change - Hematologic/Lymphatic Comment: baby aspirin daily - Allergic/Immunologic Allergic/Immunologic: Reports as per HPI Objective - Vital Signs Vital signs: Vital Signs Temp 98.2 F 05/09/22 16:19 Pulse 71 05/09/22 16:19 Resp 17 05/09/22 16:19 BP 100/66 05/09/22 16:19 Pulse Ox 95 05/09/22 16:19 FiO2 Intake & Output 05/08/22 05/09/22 05/09/22 18:59 06:59 18:59 Weight 81.647 kg - Exam BMI: 30.9 - Constitutional General appearance: Present: cooperative - EENT Eyes: Present: EOMI ENT: Present: hearing grossly normal - Neck Neck: Present: normal ROM - Respiratory Respiratory: bilateral: CTA - Cardiovascular Heart sounds: normal: S1, S2 - Integumentary Integumentary: Present: normal turgor - Musculoskeletal Musculoskeletal: Present: gait normal - Psychiatric Psychiatric: Present: A&O x's 3, appropriate affect, intact judgment & insight - Additional findings Additional findings: Breast Examination: BRA: 40D Inspection: left breast larger than right breast, bilateral grade 3 ptosis Palpation: Right breast: Multiple positional exam fibrocystic changes no dominant masses or not is of concern Right axilla: No adenopathy of concern Left breast: Multiple transitional exam fibrocystic changes of dominant masses or nodules of concern Left axilla: No adenopathy of concern Assessment and Plan Assessment: Impression: Fibrocystic breast changes, recent left breast mammogram and ultrasound BIRADS 3 patient is due for bilateral mammogram in 6 months Plan: Bilateral mammogram 6 months Follow-up sooner any questions or concerns CC: Dr. Morris Additional CC's: Edson Morris Objective - Constitutional General appearance: Present: cooperative - EENT Eyes: Present: EOMI ENT: Present: hearing grossly normal - Neck Neck: Present: normal ROM - Respiratory Respiratory: bilateral: CTA - Cardiovascular Heart sounds: normal: S1, S2 - Gastrointestinal General gastrointestinal: Present: soft - Integumentary Integumentary: Present: normal turgor - Musculoskeletal Musculoskeletal: Present: gait normal - Additional findings Additional findings: Breast examination: BRA: 40D Inspection: Bilateral grade 2/3 ptosis, left breast slightly larger than right Palpation: Right breast: Multi-positional exam fibrocystic changes no dominant masses or nodules of concern Right axilla: No adenopathy of concern Left breast: Multi-positional exam fibrocystic changes no dominant masses or nodules of concern Left axilla: No adenopathy of concern Slight fungal infection under the left breast Assessment and Plan Assessment: Assessment and Plan Assessment: Impression: Fibrocystic breast changes, bilateral mammogram in one year Plan: Bilateral mammogram 12 months follow up in one year Follow-up sooner any questions or concerns CC: Dr. Morris
== END | disposition home or self-care (01) ==
LOC: RADMAMWWP 10:47
PROVIDERS: ATTEND Surgery
DX: R92.8 Other abnormal and inconclusive findings on diagnostic imaging of breast (principal); N60.19 Diffuse cystic mastopathy of unspecified breast; K58.9 Irritable bowel syndrome, unspecified; Z78.0 Asymptomatic menopausal state; Z80.3 Family history of malignant neoplasm of breast; Z85.828 Personal history of other malignant neoplasm of skin; Z80.0 Family history of malignant neoplasm of digestive organs
CPT/HCPCS: 77066; G0279; 77062

== ENCOUNTER → 2022-11-07 | Outpatient (CLI) | payer MEDICARE ==
[2022-11-07 11:41] VITALS: BP 120/67; PULSE 65; RESP 12; TEMP 97.5
== END ==
LOC: WWCWWP 10:51
PROVIDERS: ATTEND Surgery
DX: Z53.9 Procedure and treatment not carried out, unspecified reason (principal)

== ENCOUNTER → 2023-03-10 | Outpatient (CLI) | payer MEDICARE ==
--- NOTE | 2023-03-10 15:35 | US ---
EXAMINATION TYPE: US thyroid st tissue head/neck DATE OF EXAM: 03/10/2023 COMPARISON: US 2021 CLINICAL INDICATION: Female, 72 years old with history of E04.1 NONTOXIC SINGLE THYROID NODULE; Histo ry of right thyroidectomy GLAND SIZE: Left Lobe: 3.9 x 1.3 x 1.4 cm Overall Parenchyma: heterogeneous Isthmus Thickness: 0.2 cm NODULES LEFT: # of nodules measured on left: 0 ISTHMUS: # of nodules measured in the isthmus: 0 Bilateral neck scanned, no evidence of lymphadenopathy. IMPRESSION: History of prior right-sided thyroidectomy. The left lobe demonstrates heterogeneity. Correlate with thyroid function testing.
== END | disposition home or self-care (01) ==
LOC: RADUSWWP 14:53
PROVIDERS: ATTEND Otolaryngology
DX: E04.1 Nontoxic single thyroid nodule (principal); E89.0 Postprocedural hypothyroidism; E07.89 Other specified disorders of thyroid
CPT/HCPCS: 76536

== ENCOUNTER → 2023-10-29 | Outpatient (CLI) | payer MEDICARE ==
--- NOTE | 2023-11-02 18:03 | MM ---
Reason for Exam: Screening (asymptomatic). Last screening mammogram was performed 12 month(s) ago. Patient History: Menarche at age 13. First Full-Term at age 26. Postmenopausal. Patient tested for BRCA1 outcome was negative. Maternal aunt had breast cancer. Sister had breast cancer, age 65. Risk Values: Adrianne 5 year model risk: 3.5%. NCI Lifetime model risk: 8.8%. Prior Study Comparison: 11/05/2021 Left MG 3D diag mammo w/cad LT, [facility]. 05/06/2022 Left MG 3D diag mammo w/cad LT, [facility]. 11/07/2022 Bilateral MG 3D diag mammo w/cad [facility], [facility]. Tissue Density: There are scattered fibroglandular densities. Findings: Analyzed By CAD. Bilateral chronic nodularity. There is no suspicious group of microcalcifications or new suspicious mass in either breast. Overall Assessment: Benign, BI-RAD 2 Management: Screening Mammogram of both breasts in 1 year. See note below in regards to patient's increased 5 year Adrianne score. Patient should continue monthly self-breast exams. A clinical breast exam by your physician is recommended on an annual basis. This exam should not preclude additional follow-up of suspicious palpable abnormalities. Note on Adrianne scores and lifetime risk: 1. A Adrianne score greater than 3% is considered moderate risk. If this is the case, consider specialist referral to assess eligibility for a risk reducing agent. 2. If overall lifetime risk for the development of breast cancer is 20% or higher, the patient may qualify for future screening with alternating mammogram and breast MRI. Electronically signed and approved by: Mariajose Rios M.D. Radiologist
== END | disposition home or self-care (01) ==
LOC: RADMAMWWP 12:35
PROVIDERS: ATTEND Surgery
DX: Z12.31 Encounter for screening mammogram for malignant neoplasm of breast (principal); Z78.0 Asymptomatic menopausal state; Z80.3 Family history of malignant neoplasm of breast
CPT/HCPCS: 77063; 77067

== ENCOUNTER → 2023-11-06 | Outpatient (CLI) | payer MEDICARE ==
--- NOTE | 2023-11-06 16:45 | P.PN ---
Subjective Progress Note Date: 11/06/23 Principal diagnosis: fibrocystic breast disease fibrocystic breast disease Breast surveillance Annelise is a 72 year old female seen initially in consultation for Dr. Hillman regarding breast cancer risk. She has a family history of sister and maternal aunt with breast cancer. She had genetic testing done and a variant of unknown significance was found. She had a bilateral mammogram and left breast ultrasound done at [facility] in October of 2021. This showed a small lesion in her left breast. After evaluation it was recommended she have a left mammogram and ultrasound in 6 months. The patient underwent a 3D left breast diagnostic mammogram and ultrasound on 05-06-22. This was BIRAD 3 and bilateral mammogram in 6 months recommended. she had a bilateral mammogram on 11-07-22 which was reviewed with Dr. Block as a BIRADS 2. Bilateral mammogram 10-29-23 personally reviewed BIRAD 2 She is not complaining of any lumps masses or nodules in either breast. She is not complaining of any pain in her breast at this time. She's not had any recent trauma or infection in the breast. She has never had any breast biopsies or surgery. The patient has had a history of skin cancer. Adrianne Risk Evaluation: 5 year risk: 3.5% vs. 2.2% lifetime risk: 8.8% vs. 6.3% We have discussed chemoprevention and she is not interested in this at this time. Caffeine:24 oz/day nicotine: none; stopped 39 years ago chocolate: weekly BCP: 2 years at 21 hormones: < 1 month at menopause Family History: sister: breast cancer at 70 maternal aunt: breast cancer maternal grandfather: cancer ? type mother: bile duct cancer paternal aunt: skin cancer Hormonal History: menarche: 13 , breast fed: yes, age to first : 26 menopause: 51 BCP: 2 years hormones: < 1 month Surgical history: total knee replacement right knee bilateral rotator cuffs bilateral little toes tonsilectomy dental surgery implants lower/upper teeth bone rebuilt up 2 stress tests neck biopsy dental implants thyroid resection no cancer dental surgery Medical History: IBS irregular heart beat follows with cardiology Social History: nicotine: stopped 39 years ago alcohol: none drugs: none - Constitutional Constitutional: Reports sweats - EENT Comment: mass right side of neck; ultrasound every 6 months and has had a biopsy; followed by DR. Nye Eyes: denies blurred vision, denies pain Ears: bilateral: decreased hearing, deny: tinnitus Ears, nose, mouth and throat: Denies headache, Denies sore throat - Breasts Breasts: bilateral: as per HPI - Cardiovascular Cardiovascular: Reports as per HPI, Reports shortness of breath - Respiratory Respiratory: Reports cough - Gastrointestinal Gastrointestinal: Denies diarrhea - Genitourinary (Female) Genitourinary: Denies dysuria, Denies hematuria - Menstruation Menstruation: Reports postmenopausal - Musculoskeletal Musculoskeletal: Reports neck pain - Integumentary Integumentary: Denies pruritus, Denies rash - Neurological Neurological: Denies numbness, Denies weakness - Psychiatric Psychiatric: Denies anxiety, Denies depression - Endocrine Endocrine: Reports weight change - Hematologic/Lymphatic Comment: baby aspirin daily - Allergic/Immunologic Allergic/Immunologic: Reports as per HPI Objective - Constitutional General appearance: Present: cooperative - EENT Eyes: Present: EOMI ENT: Present: hearing grossly normal - Neck Neck: Present: normal ROM - Respiratory Respiratory: bilateral: CTA - Cardiovascular Rhythm: regular Heart sounds: normal: S1, S2 - Integumentary Integumentary: Present: normal turgor - Musculoskeletal Musculoskeletal: Present: gait normal - Psychiatric Psychiatric: Present: A&O x's 3, appropriate affect, intact judgment & insight - Additional findings Additional findings: Breast examination: BRA: 40D Inspection: Bilateral grade 2/3 ptosis, left breast slightly larger than right Palpation: Right breast: Multi-positional exam fibrocystic changes no dominant masses or nodules of concern Right axilla: No adenopathy of concern Left breast: Multi-positional exam fibrocystic changes no dominant masses or nodules of concern Left axilla: No adenopathy of concern Assessment and Plan Assessment: Impression: Fibrocystic breast changes, bilateral mammogram in one year bilateral mammogram 10-29-23 BIRAD 2 Plan: Bilateral mammogram 12 months; October 2024 follow up in one year Follow-up sooner any questions or concerns CC: Dr. Morris
== END ==
LOC: WWCWWP 15:54
PROVIDERS: ATTEND Surgery
DX: Z12.31 Encounter for screening mammogram for malignant neoplasm of breast (principal); N60.19 Diffuse cystic mastopathy of unspecified breast; Z85.828 Personal history of other malignant neoplasm of skin; Z80.3 Family history of malignant neoplasm of breast; K58.9 Irritable bowel syndrome, unspecified; Z96.651 Presence of right artificial knee joint; Z88.2 Allergy status to sulfonamides; Z91.011 Allergy to milk products; Z88.5 Allergy status to narcotic agent; Z91.018 Allergy to other foods; Z79.82 Long term (current) use of aspirin; Z87.891 Personal history of nicotine dependence

== ENCOUNTER → 2024-07-01 | Outpatient (CLI) | payer MEDICARE ==
--- NOTE | 2024-07-22 14:41 | MR ---
Site ID synapse default Patient Annelise Tai M ID [id number] Age/Gender: 73Y, F Order # N/A Procedure MR cervical spine wo con Date 07/01/2024 1:01:53 PM EXAMINATION TYPE: MR cervical spine wo con DATE OF EXAM: 07/15/2024 COMPARISON: The soft tissue neck 05/07/2022, CT cervical spine 04/09/2021 HISTORY: Neck pain, tingling in hands TECHNIQUE: Multiplanar, multisequence images of the cervical spine were acquired without contrast. FINDINGS: Alignment: The cervical vertebral bodies have preserved heights. Grade 1 anterolisthesis of C3 on C4 redemonstrated. Bones: Benign vertebral hemangioma identified within the T1 vertebral body. The remaining bone signal is within normal limits. Multilevel degenerative disc disease is noted. Cord: The spinal cord is unremarkable with regards to their signal intensity and morphology. Discs: Multilevel disc desiccation is present. C2-C3: No significant disc pathology. The spinal canal is patent. No neural foraminal stenosis. C3-C4: Small right subarticular zone disc protrusion. No spinal canal stenosis. Right-sided facet art hropathy. Left neural foramen is patent. Moderate to severe right neural foraminal stenosis. C4-C5: Broad-based disc bulge without significant central canal stenosis. Bilateral facet arthropathy . Moderate bilateral neural foraminal stenosis. C5-C6: Broad-based disc bulge resulting in mild central canal stenosis. Bilateral facet arthropathy. Moderate to severe bilateral neural foraminal stenosis. C6-C7: Broad-based disc bulge without significant central canal stenosis. Bilateral facet arthropathy . Mild bilateral neural foraminal stenosis. C7-T1: No significant disc pathology. The spinal canal is patent. No neural foraminal stenosis. Other: Thyroid appears surgically absent. IMPRESSION: 1. Multilevel disc degeneration with associated osteoarthritic changes as described above. Most prom inent at C5-C6 resulting in mild central canal stenosis. Bilateral facet arthropathy at this level re sults in moderate to severe bilateral neural foraminal stenosis. Varying degrees of neural foraminal stenosis as described above. 2. Small C3-C4 right subarticular zone disc herniation without significant central canal stenosis. R esults in moderate to severe right neural foraminal stenosis. 3. Grade 1 anterolisthesis of C3 on C4.
== END | disposition home or self-care (01) ==
LOC: RADMRIMAIN 13:42
PROVIDERS: ATTEND Family Medicine
DX: M47.22 Other spondylosis with radiculopathy, cervical region (principal); M43.12 Spondylolisthesis, cervical region; M48.02 Spinal stenosis, cervical region; M50.21 Other cervical disc displacement, high cervical region
CPT/HCPCS: 72141

== ENCOUNTER → 2024-10-18 | Outpatient (CLI) | payer MEDICARE ==
--- NOTE | 2024-10-18 13:16 | CTL ---
EXAMINATION TYPE: CT Low Dose Lung DATE OF EXAM ORDERED: 10/18/2024 COMPARISON: CT neck 05/07/2022 CLINICAL INDICATION: Female, 74 years old with history of Z12.2 ENCNTR SCREEN FOR MALIGNANT NEOPLASM OF RESP; PHH, history of smoker, Lung cancer screening, History of Smoking/tobacco use. TECHNIQUE: Low dose computed tomography scan was performed through the chest at 1 mm thick sections a nd reconstructed images in multiple planes at 1 mm and [address] DLP: 112.[address] CTDI: 3.0 mGy Automated exposure control for dose reduction was used. CT DIAGNOSTIC QUALITY: Satisfactory FINDINGS: Nodules: No clinically significant pulmonary nodules. LUNGS: COPD: Severity: None Fibrosis: Severity: None Lymph nodes: None Other findings: Linear scarring and/or atelectasis within lingula and right middle lobe. RIGHT PLEURAL SPACE: Effusion: None Calcification: None Thickening: None Pneumothorax: None LEFT PLEURAL SPACE: Effusion: None Calcification: None Thickening: None Pneumothorax: None HEART: Heart Size: Mildly Enlarged Coronary Calcification: Small Pericardial Effusion: None OTHER FINDINGS: Upper abdomen: None Bony thorax: Moderate multilevel degenerative disc disease. 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 Vascular stent involving the right s ubclavian artery. Other: None IMPRESSION: No clinically significant pulmonary nodules. CT LUNG RAD AND CT CHEST RECOMMENDATION: Lung-Rad 1 Negative: Continue annual screening with LDCT in 12 months. S Modifier (other clinically significant findings): None [facility], , 10/18/2024 1:14 PM
== END | disposition home or self-care (01) ==
LOC: RADCTMAIN 12:28
PROVIDERS: ATTEND Family Medicine
DX: Z12.2 Encounter for screening for malignant neoplasm of respiratory organs (principal); Z87.891 Personal history of nicotine dependence
CPT/HCPCS: 71271

== ENCOUNTER → 2024-11-01 | Outpatient (CLI) | payer MEDICARE ==
--- NOTE | 2024-11-02 10:42 | MM ---
Reason for Exam: Screening (asymptomatic). Last screening mammogram was performed 12 month(s) ago. Patient History: Menarche at age 13. First Full-Term at age 26. Postmenopausal. Patient tested for BRCA1 outcome was negative. Maternal aunt had breast cancer. Sister had breast cancer, age 65. Risk Values: Adrianne 5 year model risk: 3.5%. NCI Lifetime model risk: 8.4%. Prior Study Comparison: 05/06/2022 Left MG 3D diag mammo w/cad LT, [facility]. 11/07/2022 Bilateral MG 3D diag mammo w/cad [facility], [facility]. 10/29/2023 Bilateral MG 3D screening mammo w/cad, [facility]. Tissue Density: There are scattered areas of fibroglandular density. Findings: Analyzed By CAD. Right breast: There is no suspicious group of microcalcifications or new suspicious mass. Benign-appearing calcifications right breast. Left breast: There is no suspicious group of microcalcifications or new suspicious mass. Benign-appearing calcifications left breast. Overall Assessment: Benign, BI-RAD 2 Management: Screening Mammogram of both breasts in [address] [facility] will attempt to contact patient to return for supplemental views and ultrasound if indicated. Patient should continue monthly self-breast exams. A clinical breast exam by your physician is recommended on an annual basis. This exam should not preclude additional follow-up of suspicious palpable abnormalities. Note on Adrianne scores and lifetime risk: 1. A Adrianne score greater than 3% is considered moderate risk. If this is the case, consider specialist referral to assess eligibility for a risk reducing agent. 2. If overall lifetime risk for the development of breast cancer is 20% or higher, the patient may qualify for future screening with alternating mammogram and breast MRI. [facility], , 11/02/2024 10:34 AM. Electronically signed and approved by: Nate Morales DO
== END | disposition home or self-care (01) ==
LOC: RADMAMWWP 10:51
PROVIDERS: ATTEND Surgery
DX: Z12.31 Encounter for screening mammogram for malignant neoplasm of breast (principal); Z78.0 Asymptomatic menopausal state; Z80.3 Family history of malignant neoplasm of breast; R92.323 Mammographic fibroglandular density, bilateral breasts
CPT/HCPCS: 77063; 77067

== ENCOUNTER → 2024-11-05 | Outpatient (CLI) | payer MEDICARE ==
[2024-11-05 12:20] VITALS: BP 141/66; PULSE 72; RESP 17; TEMP 98.4
--- NOTE | 2024-11-05 12:22 | P.PN ---
Subjective Progress Note Date: 11/05/24 Principal diagnosis: fibrocystic breast disease 11/06/23 Principal diagnosis: fibrocystic breast disease Breast surveillance Annelise is a 74 year old female seen initially in consultation for Dr. Hillman regarding breast cancer risk. She has a family history of sister and maternal aunt with breast cancer. She had genetic testing done and a variant of unknown significance was found. She had a bilateral mammogram and left breast ultrasound done at [facility] in October of 2021. This showed a small lesion in her left breast. After evaluation it was recommended she have a left mammogram and ultrasound in 6 months. This was followed and did not require a biopsy. Bilateral mammogram 11-01-24 personally reviewed BIRAD 2 She is not complaining of any lumps masses or nodules in either breast. She is not complaining of any pain in her breast at this time. She's not had any recent trauma or infection in the breast. She has never had any breast biopsies or surgery. The patient has had a history of skin cancer. Adrianne Risk Evaluation: 5 year risk: 3.5% lifetime risk: 8.4% We have discussed chemoprevention and she is not interested in this at this time. Caffeine:24 oz/day nicotine: none; stopped 39 years ago chocolate: weekly BCP: 2 years at 21 hormones: < 1 month at menopause Family History: sister: breast cancer at 70 maternal aunt: breast cancer maternal grandfather: cancer ? type mother: bile duct cancer paternal aunt: skin cancer Hormonal History: menarche: 13 , breast fed: yes, age to first : 26 menopause: 51 BCP: 2 years hormones: < 1 month Surgical history: total knee replacement right knee bilateral rotator cuffs bilateral little toes tonsilectomy dental surgery implants lower/upper teeth bone rebuilt up 2 stress tests neck biopsy dental implants thyroid resection no cancer dental surgery partial hysterectomy ovaries and uterus and tubes taken, cervix not removed, done for a prolapse Medical History: IBS irregular heart beat follows with cardiology Social History: nicotine: stopped 39 years ago alcohol: none drugs: none - Constitutional Constitutional: Reports sweats - EENT Comment: mass right side of neck; ultrasound every 6 months and has had a biopsy; followed by DR. Nye Eyes: denies blurred vision, denies pain Ears: bilateral: decreased hearing, deny: tinnitus Ears, nose, mouth and throat: Denies headache, Denies sore throat - Breasts Breasts: bilateral: as per HPI - Cardiovascular Cardiovascular: Reports as per HPI, Reports shortness of breath - Respiratory Respiratory: Reports cough - Gastrointestinal Gastrointestinal: Denies diarrhea - Genitourinary (Female) Genitourinary: Denies dysuria, Denies hematuria - Menstruation Menstruation: Reports postmenopausal - Musculoskeletal Musculoskeletal: Reports neck pain - Integumentary Integumentary: Denies pruritus, Denies rash - Neurological Neurological: Denies numbness, Denies weakness - Psychiatric Psychiatric: Denies anxiety, Denies depression - Endocrine Endocrine: Reports weight change - Hematologic/Lymphatic Comment: baby aspirin daily - Allergic/Immunologic Allergic/Immunologic: Reports as per HPI Objective - Constitutional General appearance: Present: cooperative - EENT Eyes: Present: EOMI ENT: Present: hearing grossly normal - Neck Neck: Present: normal ROM - Respiratory Respiratory: bilateral: CTA - Cardiovascular Rhythm: regular Heart sounds: normal: S1, S2 - Integumentary Integumentary: Present: normal turgor - Musculoskeletal Musculoskeletal: Present: gait normal - Psychiatric Psychiatric: Present: A&O x's 3, appropriate affect, intact judgment & insight - Additional findings Additional findings: Breast examination: BRA: 40D Inspection: Bilateral grade 2/3 ptosis, left breast slightly larger than right Palpation: Right breast: Multi-positional exam fibrocystic changes no dominant masses or nodules of concern Right axilla: No adenopathy of concern Left breast: Multi-positional exam fibrocystic changes no dominant masses or nodules of concern Left axilla: No adenopathy of concern Assessment and Plan Assessment: Impression: Fibrocystic breast changes, bilateral mammogram in one year bilateral mammogram 11-01-24 THERESE 2, personally reviewed Plan: Bilateral mammogram 12 months; October 2025 follow up in one year Follow-up sooner any questions or concerns CC: Dr. Morris
== END ==
LOC: WWCWWP 11:29
PROVIDERS: ATTEND Surgery
DX: N60.11 Diffuse cystic mastopathy of right breast (principal); N60.12 Diffuse cystic mastopathy of left breast; R92.8 Other abnormal and inconclusive findings on diagnostic imaging of breast; Z88.2 Allergy status to sulfonamides; Z91.011 Allergy to milk products; Z88.5 Allergy status to narcotic agent; Z91.018 Allergy to other foods; Z87.891 Personal history of nicotine dependence; Z80.3 Family history of malignant neoplasm of breast